=== PATIENT | female | born 1985 | race Caucasian/White ===

== ENCOUNTER 2018-03-19 03:40 | Emergency (ER) | payer BC, OTHER ==
[~2018-03-19] VITALS: Ht 160 cm; Wt 99.8 kg
--- NOTE | ~2018-03-19 | EKG ---
[place] [address] [address] [facility] [place] [address] ELECTROCARDIOGRAM REPORT Name: KIM ARGUELLO Room #: [facility]#: [id number] Admission: 03/19/18 Attend Phys: Discharge: 03/19/18 Date of : 89 Report #: [id number] THIS REPORT FOR: //name// [facility] ED Test Date: 2018-03-19 Test Time: 03:46:37 Pat Name: KIM ARGUELLO Department: Room: Gender: F Gusset Ripper: CARLA : 1985 Requested By: Randell Kincaid Order Number: [id number] MD: Clint Mujica Measurements Intervals [place] Rate: 127 P: 43 AL: 109 QRS: 57 QRSD: 87 T: -24 QT: 320 QTc: 466 Interpretive Statements Sinus tachycardia Nonspecific repol abnormality, diffuse leads No previous ECG available for comparison Electronically Signed On 03-20-2018 8:36:37 CDT by Clint Mujica [email or web address] <ELECTRONICALLY SIGNED> By: Clint Mujica MD, [facility] 03/20/18 0836 0346 0346 Clint Mujica MD, FACC /EPI
[2018-03-19] MEDS ORDERED: LOPRESSOR25 PO ×2 (04:15→05:28)
[2018-03-19] MEDS ORDERED: HYDROCHLOROTH12.5 M1 PO (04:16)
[2018-03-19] MEDS ORDERED: RECLIPSEN1 EACH PO (04:16)
[2018-03-19] MEDS ORDERED: CENTRUM SILVER1 EAC4 PO (04:17)
[2018-03-19] MEDS ORDERED: FISH OIL 1,001000 M2 PO (04:17)
[2018-03-19] MEDS ORDERED: XANAX 0.5 MG0.5 MG (04:17)
[2018-03-19] MEDS ORDERED: ASPIR 8181 MG PO (04:18)
[2018-03-19] MEDS ORDERED: BENADRYL25 MG (04:18)
[2018-03-19 04:34] LABS: ANION GAP 13 mmol/L (7-16); BUN 4 mg/dL (7-18); CALCIUM 9.6 mg/dL (8.5-10.1); CHLORIDE 99 mmol/L (98-107); CO2 23 mmol/L (21-32); CREATININE 1.2 mg/dL (0.6-1.0); GLUCOSE 124 mg/dL (74-106); POTASSIUM 3.8 mmol/L (3.5-5.1); SODIUM 135 mmol/L (136-145)
[2018-03-19 04:36] LABS: AMP/METHAMP Negative (Negative); BARBITURATES Negative (Negative); BENZODIAZEPINES Negative (Negative); COCAINE Negative (Negative); METHADONE Negative (Negative); OPIATES Negative (Negative); PCP Negative (Negative)
[2018-03-19 04:38] LABS: BASOPHILS 1.1 % (0.0-2.0); EOSINOPHILS 0.3 % (0.0-3.0); HEMATOCRIT 36.3 % (37.0-47.0); HEMOGLOBIN 12.7 gm/dL (12.0-15.0); LYMPHOCYTES 22.7 % (24.0-44.0); MCH 32.3 pg (26.0-34.0); MCHC 34.9 g/dL (28.0-37.0); MCV 92.7 fL (80.0-100.0); MONOCYTES 5.9 % (1.0-8.0); PLATELET COUNT 428 thou/uL (150-400); RBC 3.92 mil/uL (4.20-5.00); RDW 13.3 % (10.5-14.5); WBC 17.1 thou/uL (4.0-11.0)
[2018-03-19 04:43] LABS: TROPONIN-I <0.06 ng/mL (<0.06)
[2018-03-19 05:50] VITALS: BP 168/115
== END 2018-03-19 05:50 | disposition home or self-care (01) ==
LOC: ER 03:40
PROVIDERS: Emergency Medicine
DX: R00.0 Tachycardia, unspecified (principal); R42 Dizziness and giddiness; R11.2 Nausea with vomiting, unspecified

== ENCOUNTER 2018-04-28 21:52 | Emergency (ER) | payer OTHER, BC ==
[~2018-04-28] VITALS: Ht 162.6 cm; Wt 95.3 kg
[~2018-04-28 21:52] MED LIST: ASPIR 8181 MG PO; BENADRYL25 MG PO; CENTRUM SILVER1 EAC4 PO; FISH OIL 1,001000 M2 PO; HYDROCHLOROTH12.5 M1 PO; LOPRESSOR25 PO; NORCO 5-325 TA1 EACH PO; RECLIPSEN1 EACH PO; SENNA-S TABLET1 EACH PO; XANAX 0.5 MG0.5 MG PO
[2018-04-28 22:12] LABS: URINE BILIRUBIN NEGATIVE (Negative); URINE BLOOD TRACE (Negative); URINE CLARITY CLEAR; URINE COLOR YELLOW; URINE GLUCOSE-RANDOM* NEGATIVE (Negative); URINE KETONES NEGATIVE (Negative); URINE LEUKOCYTES-REFLEX NEGATIVE (Negative); URINE NITRITE-REFLEX NEGATIVE (Negative); URINE PROTEIN (DIPSTICK) NEGATIVE (Negative); URINE SPECIFIC GRAVITY <= 1.005 (1.005-1.035); URINE UROBILINOGEN 0.2 E.U./dl (0.2-1.0)
[2018-04-28 23:41] LABS: ABSOLUTE NEUTROPHILS 11.4 thou/uL (1.4-8.2); BASOPHILS 0.6 % (0.0-2.0); EOSINOPHILS 0.5 % (0.0-3.0); HEMOGLOBIN 12.1 gm/dL (12.0-15.0); LYMPHOCYTES 19.8 % (24.0-44.0); MCH 32.4 pg (26.0-34.0); MCHC 33.7 g/dL (28.0-37.0); MCV 96.1 fL (80.0-100.0); MONOCYTES 5.5 % (1.0-8.0); PLATELET COUNT 419 thou/uL (150-400); POLYS 73.6 % (36.0-66.0); RBC 3.75 mil/uL (4.20-5.00); RDW 13.1 % (10.5-14.5); WBC 15.6 thou/uL (4.0-11.0)
[2018-04-29 00:07] LABS: CALCIUM 9.3 mg/dL (8.5-10.1); CREATININE 0.9 mg/dL (0.6-1.0); POTASSIUM 3.4 mmol/L (3.5-5.1)
[2018-04-29 00:12] LABS: ALBUMIN 3.7 g/dL (3.4-5.0); TOTAL BILIRUBIN 0.5 mg/dL (<0.1-1.0); TOTAL PROTEIN 7.5 g/dL (6.4-8.2)
[2018-04-29] MEDS ORDERED: NAPROSYN500 MG PO (01:57)
[2018-04-29] MEDS ORDERED: NORCO 5-325 TA1 EACH PO (01:57)
== END 2018-04-29 02:30 | disposition home or self-care (01) ==
LOC: ER 21:52
PROVIDERS: Emergency Medicine
DX: G89.18 Other acute postprocedural pain (principal); R19.7 Diarrhea, unspecified; N83.201 Unspecified ovarian cyst, right side; R00.0 Tachycardia, unspecified; D72.829 Elevated white blood cell count, unspecified; I10 Essential (primary) hypertension; F41.9 Anxiety disorder, unspecified; Z98.890 Other specified postprocedural states; Z90.49 Acquired absence of other specified parts of digestive tract

== ENCOUNTER 2018-05-03 23:44 | Emergency (ER) | payer BC, OTHER ==
[~2018-05-03] VITALS: Ht 162.6 cm; Wt 95.3 kg
[~2018-05-03 23:44] MED LIST changes: +NAPROSYN500 MG PO
[2018-05-04 01:11] LABS: HEMATOCRIT 36.5 % (37.0-47.0); HEMOGLOBIN 12.4 gm/dL (12.0-15.0); MCH 32.6 pg (26.0-34.0); MCHC 33.9 g/dL (28.0-37.0); MCV 96.2 fL (80.0-100.0); RBC 3.79 mil/uL (4.20-5.00); WBC 14.4 thou/uL (4.0-11.0)
[2018-05-04 01:15] LABS: CALCIUM 9.3 mg/dL (8.5-10.1); CREATININE 0.8 mg/dL (0.6-1.0); POTASSIUM 3.6 mmol/L (3.5-5.1)
[2018-05-04 01:21] LABS: ALBUMIN 3.6 g/dL (3.4-5.0); TOTAL BILIRUBIN 0.4 mg/dL (<0.1-1.0); TOTAL PROTEIN 7.1 g/dL (6.4-8.2)
[2018-05-04] MEDS ORDERED: PHENERGAN 25 MG25 M1 PO (03:45)
[2018-05-04] MEDS ORDERED: ZOFRAN ODT4 MG PO (03:45)
== END 2018-05-04 04:00 | disposition home or self-care (01) ==
LOC: ER 23:44
PROVIDERS: Emergency Medicine
DX: R10.30 Lower abdominal pain, unspecified (principal); Z90.49 Acquired absence of other specified parts of digestive tract; R11.2 Nausea with vomiting, unspecified; R00.0 Tachycardia, unspecified; I10 Essential (primary) hypertension; F41.9 Anxiety disorder, unspecified; Z98.890 Other specified postprocedural states

== ENCOUNTER 2018-06-06 13:02 | Emergency (ER) | payer BC, OTHER ==
[~2018-06-06] VITALS: Ht 162.6 cm; Wt 95.3 kg
[~2018-06-06 13:02] MED LIST changes: +ANUSOL-HC25 MG RECTAL; +BENTYL 10 MG CA10 M1 PO; +METOPROLOL SUCC50 MG PO; +PHENERGAN 25 MG25 M1 PO; +PRILOSEC 20 MG20 MG PO; +PROTONIX40 M1 PO; +TRAMADOL 50 MG50 MG PO; +ZOFRAN ODT4 MG PO; +ZOFRAN ODT8 MG PO
[2018-06-06 14:08] LABS: ABSOLUTE NEUTROPHILS 8.2 thou/uL (1.4-8.2); BASOPHILS 0.5 % (0.0-2.0); EOSINOPHILS 0.3 % (0.0-3.0); HEMATOCRIT 43.1 % (37.0-47.0); HEMOGLOBIN 14.6 gm/dL (12.0-15.0); LYMPHOCYTES 23.6 % (24.0-44.0); MCH 32.5 pg (26.0-34.0); MCHC 33.9 g/dL (28.0-37.0); MCV 95.8 fL (80.0-100.0); MONOCYTES 6.4 % (1.0-8.0); PLATELET COUNT 362 thou/uL (150-400); POLYS 69.2 % (36.0-66.0); RDW 13.1 % (10.5-14.5); WBC 11.8 thou/uL (4.0-11.0)
[2018-06-06 14:25] LABS: CALCIUM 9.1 mg/dL (8.5-10.1); CREATININE 1.2 mg/dL (0.6-1.0); POTASSIUM 4.4 mmol/L (3.5-5.1)
[2018-06-06 14:30] LABS: ALBUMIN 3.9 g/dL (3.4-5.0); TOTAL BILIRUBIN 0.9 mg/dL (<0.1-1.0); TOTAL PROTEIN 8.2 g/dL (6.4-8.2)
[2018-06-06 15:04] LABS: URINE BLOOD 1+ (Negative); URINE CLARITY CLEAR; URINE COLOR YELLOW; URINE GLUCOSE-RANDOM* NEGATIVE (Negative); URINE KETONES NEGATIVE (Negative); URINE LEUKOCYTES-REFLEX NEGATIVE (Negative); URINE NITRITE-REFLEX NEGATIVE (Negative); URINE PROTEIN (DIPSTICK) 1+ (Negative); URINE SPECIFIC GRAVITY >= 1.030 (1.005-1.035); URINE UROBILINOGEN 0.2 E.U./dl (0.2-1.0)
[2018-06-06 15:07] LABS: ICTOTEST (BILI CONFIRMATORY) Negative (Negative); URINE BILIRUBIN NEGATIVE (Negative)
[2018-06-06 15:10] LABS: SQUAMOUS 4-10 Moderate /LPF (0-3); URINE RBC 3-10 Few /HPF (0-2); URINE WBC-REFLEX 0-5 Rare /HPF (0-5)
[2018-06-06 15:13] LABS: BACTERIA-REFLEX 1-9 Few /HPF (None Seen); CASTS None Seen /LPF (None Seen); CRYSTALS None Seen /LPF (None Seen); YEAST-REFLEX Present (None Seen)
== END 2018-06-06 16:45 | disposition home or self-care (01) ==
LOC: ER 13:02
PROVIDERS: Physician Assistant
DX: D72.829 Elevated white blood cell count, unspecified (principal); R94.5 Abnormal results of liver function studies; R11.2 Nausea with vomiting, unspecified; R00.0 Tachycardia, unspecified; I10 Essential (primary) hypertension; F41.9 Anxiety disorder, unspecified; Z98.890 Other specified postprocedural states

== ENCOUNTER 2018-12-03 06:51 | Emergency (ER) | payer BC, OTHER ==
[~2018-12-03] VITALS: Ht 162.6 cm; Wt 86.2 kg
[2018-12-03] MEDS ORDERED: FENOFIBRATE160 MG PO ×2 (07:09)
[2018-12-03 08:18] LABS: ABSOLUTE NEUTROPHILS 5.8 thou/uL (1.4-8.2); BASOPHILS 0.6 % (0.0-2.0); EOSINOPHILS 1.1 % (0.0-3.0); HEMATOCRIT 41.8 % (37.0-47.0); HEMOGLOBIN 14.4 gm/dL (12.0-15.0); LYMPHOCYTES 25.3 % (24.0-44.0); MCH 33.7 pg (26.0-34.0); MCHC 34.4 g/dL (28.0-37.0); MCV 97.9 fL (80.0-100.0); MONOCYTES 7.9 % (1.0-8.0); PLATELET COUNT 360 thou/uL (150-400); POLYS 65.1 % (36.0-66.0); RBC 4.27 mil/uL (4.20-5.00); RDW 13.7 % (10.5-14.5); WBC 8.9 thou/uL (4.0-11.0)
[2018-12-03 08:21] LABS: POTASSIUM 3.8 mmol/L (3.5-5.1)
[2018-12-03 08:27] LABS: ALBUMIN 3.8 g/dL (3.4-5.0); TOTAL BILIRUBIN 0.5 mg/dL (<0.1-1.0); TOTAL PROTEIN 7.6 g/dL (6.4-8.2)
[2018-12-03 09:29] LABS: URINE BILIRUBIN NEGATIVE (Negative); URINE BLOOD NEGATIVE (Negative); URINE CLARITY CLEAR; URINE COLOR YELLOW; URINE GLUCOSE-RANDOM* NEGATIVE (Negative); URINE KETONES NEGATIVE (Negative); URINE LEUKOCYTES-REFLEX NEGATIVE (Negative); URINE NITRITE-REFLEX NEGATIVE (Negative); URINE PROTEIN (DIPSTICK) NEGATIVE (Negative); URINE SPECIFIC GRAVITY <= 1.005 (1.005-1.035); URINE UROBILINOGEN 0.2 E.U./dl (0.2-1.0)
[2018-12-03 09:37] LABS: AMP/METHAMP Negative (Negative); BARBITURATES Negative (Negative); BENZODIAZEPINES POSITIVE (Negative); COCAINE Negative (Negative); METHADONE Negative (Negative); OPIATES POSITIVE (Negative); PCP Negative (Negative)
[2018-12-03] MEDS ORDERED: ZOFRAN ODT4 MG PO (11:35)
[2018-12-03] MEDS ORDERED: PHENERGAN 25 MG25 M1 PO (11:35)
[2018-12-03] MEDS ORDERED: NORCO 5-325 TA1 EACH PO (11:35)
[2018-12-03 11:52] VITALS: BP 131/84
== END 2018-12-03 11:52 | disposition home or self-care (01) ==
LOC: ER 06:51
PROVIDERS: Emergency Medicine
DX: R10.11 Right upper quadrant pain (principal); R10.13 Epigastric pain; R11.2 Nausea with vomiting, unspecified; R74.0 Nonspecific elevation of levels of transaminase and lactic acid dehydrogenase [LDH]; R19.7 Diarrhea, unspecified; I10 Essential (primary) hypertension; K21.9 Gastro-esophageal reflux disease without esophagitis; E78.1 Pure hyperglyceridemia; Z90.49 Acquired absence of other specified parts of digestive tract

== ENCOUNTER 2019-04-10 20:56 | Inpatient (IN) | payer BC, OTHER ==
[~2019-04-10] VITALS: Ht 162.6 cm; Wt 89.4 kg
[~2019-04-10 20:56] MED LIST changes: +CEFDINIR300 MG PO; +FENOFIBRATE160 MG PO; +NF; +NORCO 5-325 TA1 EAC1 PO; +PRENATAL PO; +TOPROL XL25 MG PO
[2019-04-10 21:58] VITALS: BP 167/92
[2019-04-10 22:38] LABS: URINE BILIRUBIN NEGATIVE (Negative); URINE BLOOD NEGATIVE (Negative); URINE CLARITY CLEAR; URINE COLOR YELLOW; URINE GLUCOSE-RANDOM* NEGATIVE (Negative); URINE KETONES TRACE (Negative); URINE LEUKOCYTES-REFLEX NEGATIVE (Negative); URINE NITRITE-REFLEX NEGATIVE (Negative); URINE PROTEIN (DIPSTICK) 1+ (Negative); URINE SPECIFIC GRAVITY 1.025 (1.005-1.035)
[2019-04-10 22:52] LABS: BACTERIA-REFLEX None Seen /HPF (None Seen); CASTS None Seen /LPF (None Seen); CRYSTALS None Seen /LPF (None Seen); MUCUS 4-6 Moderate strn/LPF (None Seen); SQUAMOUS 4-10 Moderate /LPF (0-3); URINE RBC None Seen /HPF (0-2); URINE WBC-REFLEX None Seen /HPF (0-5)
[2019-04-10 23:40] LABS: ABSOLUTE NEUTROPHILS 12.1 thou/uL (1.4-8.2); BASOPHILS 0.6 % (0.0-2.0); EOSINOPHILS 0.7 % (0.0-3.0); HEMOGLOBIN 12.2 gm/dL (12.0-15.0); LYMPHOCYTES 20.8 % (24.0-44.0); MCHC 33.8 g/dL (28.0-37.0); MCV 100.5 fL (80.0-100.0); MONOCYTES 6.1 % (1.0-8.0); PLATELET COUNT 490 thou/uL (150-400); POLYS 71.8 % (36.0-66.0); RBC 3.58 mil/uL (4.20-5.00); RDW 12.6 % (10.5-14.5); WBC 16.9 thou/uL (4.0-11.0)
[2019-04-10 23:53] LABS: CALCIUM 9.5 mg/dL (8.5-10.1); POTASSIUM 4.4 mmol/L (3.5-5.1)
[2019-04-11] LABS: ALBUMIN 3.5 g/dL (3.4-5.0); TOTAL PROTEIN 7.5 g/dL (6.4-8.2)
[2019-04-11 10:42] LABS: AMP/METHAMP Negative (Negative); BARBITURATES Negative (Negative); BENZODIAZEPINES POSITIVE (Negative); COCAINE Negative (Negative); METHADONE Negative (Negative); OPIATES Negative (Negative); PCP Negative (Negative)
[2019-04-11 12:42] VITALS: BP 119/78
[2019-04-11 12:49] VITALS: BP 135/89
[2019-04-11 13:16] VITALS: BP 153/104
--- NOTE | 2019-04-11 13:23 | NUR ---
ASSUMED CARE OF PT AROUND 1315, A&0X4, AMB INDEPENDENTLY, IVF RUNNING, REC REPORT AND WAS TOLD AN ETA OF PT, THEN DISCOVERED SHE WAS PRESENT IN THE ROOM. TELE PLACED AND CLEAR LIQUIDS GIVEN. WRAPPED IV SITE TO PREVENT REMOVAL D/T MOVEMENT AND TO ENSURE IVF RUNNING. C/O PAIN AT ABOUT AN 8 FRONT LEFT ABD. HAS BEEN HERE IN THE ED SINCE 2100 NIGHT PRIOR. HOPING TO D/C BY TOMORROW LATE A.M. TO SALES AND MARKETING SPECIALIST SON. ENCOURAGED HER TO USE CALL LIGHT FOR ANY NEEDS
[2019-04-11 15:26] VITALS: BP 142/92
[2019-04-11 20:02] VITALS: BP 144/97
[2019-04-12 00:24] VITALS: BP 135/96
[2019-04-12 05:06] VITALS: BP 131/86
--- NOTE | 2019-04-12 08:33 | NUR ---
ASSUME CARE 1900. PT/VITALS STABLE. INTERMITTENT ABDO PAIN. NO N/V INDICATED. ASSESSMETN CHARTED. PROGRESSING WITH POC. PLAN IS FOR GI TO CONTINUE TO SEE PT. POSSIBLE DISCHARGE WITHIN A FEW DAYS. WILL CONTINUE TO MONITOR AND FOLLOW WITH POC
[2019-04-12 08:37] VITALS: BP 126/84
--- NOTE | 2019-04-12 11:52 | NUR ---
PT WAS TOLD D/C WAS IMMINENT BY GI SO SHE'S DRESSED. NO ORDERS. SENT COMM TO PHYSICIAN TO ASK IF D/C IS IMMINENT AND IF ANY RX WERE TO BE SENT SHE'S ASKING FOR HYDROCODONE AND ZOFRAN; AWAITING ORDERS
[2019-04-12 12:52] LABS: HEMATOCRIT 33.2 % (37.0-47.0); HEMOGLOBIN 11.2 gm/dL (12.0-15.0); MCH 34.7 pg (26.0-34.0); MCHC 33.8 g/dL (28.0-37.0); MCV 102.6 fL (80.0-100.0); RBC 3.24 mil/uL (4.20-5.00); RDW 12.6 % (10.5-14.5); WBC 9.8 thou/uL (4.0-11.0)
[2019-04-12 13:07] LABS: CALCIUM 9.4 mg/dL (8.5-10.1); CREATININE 1.1 mg/dL (0.6-1.0); POTASSIUM 4.2 mmol/L (3.5-5.1)
[2019-04-12 13:13] LABS: ALBUMIN 3.2 g/dL (3.4-5.0); MAGNESIUM 1.9 mg/dL (1.8-2.4); TOTAL BILIRUBIN 0.5 mg/dL (<0.1-1.0); TOTAL PROTEIN 6.9 g/dL (6.4-8.2)
[2019-04-12] MEDS ORDERED: HYDROCODON-ACE1 EAC7 PO (13:27)
[2019-04-12] MEDS ORDERED: ZOFRAN ODT4 MG DISSOLVE (13:28)
[2019-04-12 13:47] VITALS: BP 126/84
== END 2019-04-12 14:09 | disposition home or self-care (01) | DRG 392 ==
LOC: ER 20:56 → EROBS 04-11 02:23 → 2N 04-11 02:23
PROVIDERS: Emergency Medicine; Internal Medicine; Nurse Practitioner Acute Care; Physician Assistant; ADMIT Internal Medicine
DX: A08.4 Viral intestinal infection, unspecified (principal); I10 Essential (primary) hypertension; K21.9 Gastro-esophageal reflux disease without esophagitis; D72.829 Elevated white blood cell count, unspecified; F41.9 Anxiety disorder, unspecified; R74.0 Nonspecific elevation of levels of transaminase and lactic acid dehydrogenase [LDH]; F80.82 Social pragmatic communication disorder; E78.1 Pure hyperglyceridemia; K76.0 Fatty (change of) liver, not elsewhere classified; F12.90 Cannabis use, unspecified, uncomplicated; Z90.49 Acquired absence of other specified parts of digestive tract; Z79.899 Other long term (current) drug therapy; Z98.891 History of uterine scar from previous surgery; Z83.3 Family history of diabetes mellitus; Z80.8 Family history of malignant neoplasm of other organs or systems; Z84.1 Family history of disorders of kidney and ureter; Z71.89 Other specified counseling
CPT/HCPCS: 10081

== ENCOUNTER 2019-05-21 14:35 | Inpatient (IN) | payer BC, OTHER ==
[~2019-05-21] VITALS: Ht 162.6 cm; Wt 86.6 kg
--- NOTE | ~2019-05-21 | H ---
[facility] [place] [address] HISTORY AND PHYSICAL Name: KIM ARGUELLO Room #: 351-P ADM IN M.R.#: [id number] Admission: 05/21/19 Attend Phys: Magnolia Doan MD Discharge: Date of : 89 Report #: [id number] THIS REPORT FOR: //name// CC: Cristian Doan DATE OF SERVICE: 05/21/2019 PRIMARY CARE PHYSICIAN: Dr. Cristian Snow. CHIEF COMPLAINT: Abdominal pain, progressively worsening for the past 2 days. HISTORY OF PRESENT ILLNESS: The patient is a very pleasant 34-year-old female with a known history of abdominal pain with pancreatic and biliary ductal issues after cholecystectomy and had a stent placed approximately 14 months ago. The patient informs me that she was supposed to have a followup for her stent; however, because of change in insurance, she could not see her GI team and she has not had any problems, so she did not think much of it to make an appointment with the GI, but 2 days ago, she started having abdominal pain. She points to the epigastric area and the pain radiates to the left upper quadrant interestingly and the patient denies any radiation to the back or to the jaw or shoulder. The patient denies any associated nausea or vomiting; however, she has had some diarrhea for the last 2 days, which she describes more like a soft stool rather than actual diarrhea. The patient informs me that recently she has been treated for UTI with cephalexin; however, she did not complete the course as she was symptomatically much better and then she started having problems with the frequency and urgency of urination. She denies dysuria; however, the patient informs me that she has had some fever as well as chills and night sweats and flushing of the face noted by her family member. 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 The patient denies any hematochezia or melena and with this soft stool. Denies any hematochezia, melena and denies dysuria, hematuria as well. The patient has not had any dizziness, lightheadedness or any focal neurologic weakness and approximately 3 years ago, she had an episode of UTI and after that she was treated for UTI sometimes at the end of February this year. Other than that, she has not had any problems with urinary tract infection. PAST MEDICAL HISTORY: Significant for: 1. Abdominal pain with issues with gallbladder and ended up having cholecystectomy on 04/13/2018 and subsequently she was seen by GI and had a stent placed in the pancreatic duct by [facility]'s GI team. The patient also has had a history of chronic abdominal pain, elevated liver function test and biliary stent insertion, postoperative abdominal pain, pyelonephritis, history of rectal bleeding, history of right ovarian cyst. Also, has had history of transaminitis and a recurrent UTI and chronic recurrent diarrhea. [address] [address] HISTORY AND PHYSICAL Name: KIM ARGUELLO BRICE Room #: 351-P [facility] IN M.R.#: [id number] Admission: 05/21/19 Attend Phys: Magnolia Doan MD Discharge: Date of : 89 Report #: [id number] ALLERGIES: The patient has no known drug allergies. CURRENT MEDICATIONS: She was taking fenofibrate; however, in end of February, she was told to stop it. Fenofibrate did help her with the symptoms of diarrhea. Interestingly, she does not take any other medications. PERSONAL AND SOCIAL HISTORY: She smoked when she was in college, maybe for a year less than 4 cigarettes a day and she denies any alcohol or tobacco use on a regular basis. She has not had any tobacco since she got out of college. She does drink 4-6 drinks on the long weekend and regularly she drinks 4 drinks on the weekend and has not had any withdrawal symptoms and does not take alcohol on a daily basis. FAMILY HISTORY: Significant for mother dealing with lot of GI issues as well as some issues with the uterus and she is going to have a hysterectomy pretty soon and she also has had cholecystectomy at a much younger age, just like the patient and father has a history of leukemia; however, with stem cell lung transplant, he has been doing fine. Family history significant for paternal uncles with all different kinds of cancers. PAST SURGICAL HISTORY: The patient has had cholecystectomy 14 months ago and then biliary stent placement after that and she is supposed to get the stent removed sometime soon as per the instruction from the GI team at [facility]. REVIEW OF SYSTEMS: A 10-point review of systems was done and was negative. Please see HPI above. PHYSICAL EXAMINATION: VITAL SIGNS: Temperature 37, heart rate 129, respirations 16, blood pressure 155/104, pulse oximetry 96% on room air. GENERAL: Alert and oriented to time, place and person, very pleasant 34-year-old a young woman who appears her stated age and is in no acute distress, however, does have diaphoresis and sweats right now as I am examining her. HEENT: Normocephalic, atraumatic. Pupils are equally round and reactive to light. Extraocular muscle movements are intact. Conjunctivae are clear. Sclerae are nonicteric. Both TMs are clear. No sinus tenderness noted. NECK: Supple, no JVD, no lymphadenopathy. HEART: S1, S2 regular. Tachycardia noted. LUNGS: Clear to auscultation bilaterally. ABDOMEN: The patient has significant tenderness in the epigastric area. No rebound, rigidity or masses palpable. The patient had left-sided CVA tenderness noted and no suprapubic tenderness noted. Both lower extremities are without any edema. NEUROLOGIC: Completely nonfocal. [facility] [address] [place] [address] HISTORY AND PHYSICAL Name: KIM ARGUELLO Room #: 351-[facility] IN [facility]#: [id number] Admission: 05/21/19 Attend Phys: Magnolia Doan MD Discharge: Date of : 89 Report #: [id number] LABORATORY DATA AND X-RAYS: Lactic acid 2.7, elevated; WBC 13.2, elevated; hemoglobin 13.6; hematocrit ____; platelet count 389 with a differential, elevated; segmented neutrophil of 66.7. Chemistries indicate sodium 135, low sodium, potassium 3.5, chloride 99, bicarbonate 19, anion gap 17, BUN 7, creatinine 1.0, estimated GFR 64, glucose 221, calcium 9.5, total bilirubin 1.1, AST 174, ALT 130, alkaline phosphatase 110, total protein 7.5, albumin 3.6. Lipase is elevated at 517. Urinalysis with a specific gravity of 1.030, pH 6 and protein 2+, ketones trace, 2+ blood, positive nitrites and negative leukocyte esterase, however, 0-3 squamous epithelial cells and 1-9 bacteria seen, but no wbc's seen and there is random glucose. ____ test is negative. CT scan of the abdomen and pelvis was done and it indicated hepatomegaly as well as common bile duct metallic stent seen. Next, a diffusely thickened urinary bladder noted and a urine culture and blood culture has been sent. ASSESSMENT AND PLAN: 1. Sepsis. 2. Urinary tract infection. 3. Abdominal pain with a biliary stent in place. 4. With a left-sided CVA tenderness likely pyelonephritis. 5. Hyperglycemia with a serum glucose of 221 consistent with diabetes. PLAN: 1. The patient has received normal saline bolus in the Emergency Room and ceftriaxone and metronidazole have been started for sepsis as well as further GI source as well as UTI. Urine culture and blood cultures have been sent and will follow up on that and then we will go ahead and give normal saline fluid bolus. The patient has already received a one-time 1000 mL bolus already and we will go ahead and give another one and repeat lactic acid in 3 hours. 2. GI has been consulted for abdominal pain and will give IV Pepcid b.i.d. We will hold off on the Lovenox at this time and will give pneumatic compression devices for DVT prophylaxis. 3. The complete abdominal ultrasound has been ordered because of the left CVA tenderness and a recent untreated urinary tract infections. We will look at the renal shadow as well as evaluate liver and gallbladder, liver and common bile duct and plan of care was discussed with the patient in detail and will check out patient to Ms. ____ night nurse practitioner emergency vehicle operations instructor. By: 14 51 Magnolia Doan MD /nt
[~2019-05-21 14:35] MED LIST changes: +HYDROCODON-ACE1 EAC7 PO; +ZOFRAN ODT4 MG DISSOLVE
[2019-05-21 14:36] VITALS: BP 155/104
[2019-05-21 14:58] LABS: URINE BILIRUBIN 1+ (Negative); URINE BLOOD 2+ (Negative); URINE CLARITY CLEAR; URINE COLOR ORANGE; URINE GLUCOSE-RANDOM* TRACE (Negative); URINE KETONES TRACE (Negative); URINE LEUKOCYTES-REFLEX NEGATIVE (Negative); URINE PROTEIN (DIPSTICK) 2+ (Negative); URINE SPECIFIC GRAVITY >= 1.030 (1.005-1.035)
[2019-05-21 15:00] LABS: ABSOLUTE NEUTROPHILS 8.8 thou/uL (1.4-8.2); BASOPHILS 0.6 % (0.0-2.0); EOSINOPHILS 0.5 % (0.0-3.0); HEMATOCRIT 40.3 % (37.0-47.0); HEMOGLOBIN 13.6 gm/dL (12.0-15.0); LYMPHOCYTES 24.9 % (24.0-44.0); MCH 33.4 pg (26.0-34.0); MCHC 33.6 g/dL (28.0-37.0); MCV 99.4 fL (80.0-100.0); MONOCYTES 7.3 % (1.0-8.0); PLATELET COUNT 389 thou/uL (150-400); POLYS 66.7 % (36.0-66.0); RBC 4.06 mil/uL (4.20-5.00); WBC 13.2 thou/uL (4.0-11.0)
[2019-05-21 15:01] LABS: ICTOTEST (BILI CONFIRMATORY) Positive (Negative); URINE NITRITE-REFLEX POSITIVE (Negative)
[2019-05-21 15:08] LABS: CALCIUM 9.5 mg/dL (8.5-10.1); POTASSIUM 3.5 mmol/L (3.5-5.1)
[2019-05-21 15:08] LABS: CALCIUM OXALATE 4-10 Moderate /LPF (None Seen); SQUAMOUS 0-3 Few /LPF (0-3)
[2019-05-21 15:09] LABS: CASTS None Seen /LPF (None Seen); MUCUS 4-6 Moderate strn/LPF (None Seen)
[2019-05-21 15:10] LABS: BACTERIA-REFLEX 1-9 Few /HPF (None Seen); URINE RBC 0-2 Rare /HPF (0-2); URINE WBC-REFLEX None Seen /HPF (0-5)
[2019-05-21 15:14] LABS: ALBUMIN 3.6 g/dL (3.4-5.0); TOTAL BILIRUBIN 1.1 mg/dL (<0.1-1.0); TOTAL PROTEIN 7.5 g/dL (6.4-8.2)
[2019-05-21 18:39] VITALS: BP 151/95
[2019-05-21 19:44] VITALS: BP 138/85
[2019-05-21 23:54] VITALS: BP 174/112
--- NOTE | 2019-05-22 03:20 | NUR ---
Admission history and assessments completed. Education about special contact isolation until Cdiff is ruled out. Better pain control with Hydromorphone, nausea controlled with zofran. Ice chips ok per Jaye Ricks WIRE DROPPER. IVfluids infusing. Up independently without difficulty. BP stable , Sinus rhtym rate 80-90 but can be up to 140's when in pin or up ambulating. For GI consult.
[2019-05-22 03:50] VITALS: BP 138/85
[2019-05-22 05:08] LABS: GLYCOHEMOGLOBIN (HGB A1C) 5.6 % (4.8-5.6)
[2019-05-22 05:41] LABS: CALCIUM 7.8 mg/dL (8.5-10.1); CREATININE 0.9 mg/dL (0.6-1.0); MAGNESIUM 1.3 mg/dL (1.8-2.4); PHOSPHORUS 2.9 mg/dL (2.5-4.9); POTASSIUM 3.6 mmol/L (3.5-5.1)
[2019-05-22 05:50] LABS: MCH 34.1 pg (26.0-34.0); MCV 100.4 fL (80.0-100.0); RBC 3.29 mil/uL (4.20-5.00); RDW 12.5 % (10.5-14.5); WBC 11.4 thou/uL (4.0-11.0)
[2019-05-22 06:17] LABS: HEMOGLOBIN 11.2 gm/dL (12.0-15.0)
[2019-05-22 07:57] VITALS: BP 149/104
--- NOTE | 2019-05-22 10:26 | NUR ---
ASSESSMENT: CM REVIEWED CHART AND MET WITH PATIENT AT THE BEDSIDE. PT IS ALERT AND ORIENTED X4. PT WAS ADMITTED WITH ABDOMINAL PAIN/UTI. PT REPORTS THAT SHE LIVES IN AN APT WITH HER SON. PT STATES HER SONS FATHER IS TAKING CARE OF HIM. PT REPORTS SHE HAS NO STEPS TO ENTER OR ONCE INSIDE. PT STATES SHE IS FULLY INDEPENDENT WITH ADLS AND AMBULATION. 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 PT REPORTS SHE HAS NOT HAD HH IN THE PAST. PT REPORTS SHE ANTICIPATES DISCHARGING BACK HOME AT DISCHARGE WITH NO NEEDS.
[2019-05-22 10:40] VITALS: BP 156/104
--- NOTE | 2019-05-22 12:22 | NUR ---
WHILE GIVING FENTANYL AND ZOFRAN CLAYTONET C/O OF A STINGING SENSATION IN HER LEFT CHEST AND MIDDLE UPPER ABDOMEN. REASSESSED PATIENT AFTER 5 MINS AND SHE STATED THE SINGING SENSATION WENT AWAY.
--- NOTE | 2019-05-22 13:10 | NUR ---
PT A&OX4, VSS, PAIN IN ABD. PAIN MEDICATION, RELAXATION, ICE PACKS TO BACK AND ABD GIVEN TO MANAGE PAIN. PT VOMITED AT APPROX 0930, 150ML OF TRANSPARENT GREEN FLUID. ZOFRAN GIVEN, PT CHECKED AT 1030 AND DENIES N/V. MEDICATION AND FLUIDS GIVEN ORDERED. PATIENT STATES HER PAIN DOES NOT DECREASE TO A COMFORTABLE LEVEL, DOCTOR IN TO VISIT PATIENT. PATIENT EXPERIENCING HIGH DIASTOLIC BP, DOCTOR AWARE, ORDERS PLACED.
[2019-05-22 16:06] VITALS: BP 171/117
[2019-05-22 20:02] LABS: AMP/METHAMP Negative (Negative); BARBITURATES Negative (Negative); BENZODIAZEPINES Negative (Negative); COCAINE Negative (Negative); METHADONE Negative (Negative); OPIATES POSITIVE (Negative); PCP Negative (Negative)
[2019-05-22 20:47] VITALS: BP 177/117
--- NOTE | 2019-05-23 03:14 | NUR ---
PATIENT IS ALERT AND ORIENTED. PATIENT IS SBA. PATIENTS LBM WAS THE 4TH. PATIENTS PAIN IS CONTROLLED WITH PAIN MEDICATION. PATIENT HAS HAD ONLY ICECHIPS THIS SHIFT AND IT HAS HELPED WITH NAUSEA. PATIENT IS ROOM AIR. WCM. PATIENT IS RESTING COMFORTABLY IN BED
[2019-05-23 03:30] VITALS: BP 130/86
[2019-05-23 05:27] LABS: HEMATOCRIT 34.3 % (37.0-47.0); HEMOGLOBIN 11.5 gm/dL (12.0-15.0); MCH 33.7 pg (26.0-34.0); MCHC 33.5 g/dL (28.0-37.0); MCV 100.6 fL (80.0-100.0); RBC 3.41 mil/uL (4.20-5.00); RDW 12.7 % (10.5-14.5); WBC 10.9 thou/uL (4.0-11.0)
[2019-05-23 05:31] LABS: ALBUMIN 2.9 g/dL (3.4-5.0); CALCIUM 7.4 mg/dL (8.5-10.1); CREATININE 0.7 mg/dL (0.6-1.0); MAGNESIUM 2.1 mg/dL (1.8-2.4); PHOSPHORUS 1.8 mg/dL (2.5-4.9); POTASSIUM 3.3 mmol/L (3.5-5.1); TOTAL BILIRUBIN 0.7 mg/dL (<0.1-1.0); TOTAL PROTEIN 6.2 g/dL (6.4-8.2)
[2019-05-23 07:01] VITALS: BP 132/89
[2019-05-23 13:44] VITALS: BP 127/88
[2019-05-23 19:09] VITALS: BP 124/78
--- NOTE | 2019-05-23 20:09 | NUR ---
PT PAIN HAS BEEN FARLY WELL CONTROLLED UNTIL THIS BALWINDER...ALTERNATING FENTANTL AND DILAUDID FOR PAIN...REPORTS LUQ PAIN THAT READIATES TO BACK AND SOME RLQ PAIN NOTED...DENIES EMESIS TODAY...ABLE TO TOLERATE FULL LIQ FOR DINNER..
[2019-05-24 03:45] VITALS: BP 140/82
--- NOTE | 2019-05-24 04:08 | NUR ---
PATIENT IS PROGRESSING SLOWLY IN HER CARE PLAN. VITAL SIGNS STABLE THROUGHOUT SHIFT. PATIENT COMPLAINED OF ABDOMINAL PAIN AND NAUSEA FREQUENTLY IN PAIN WHICH WAS TREATED APPROPRIATELY THROUGH MEDICATIONS AND NON PHARMACOLOGICAL INTERVENTIONS. FULLY ORIENTED, PATIENT IS ABLE TO CALL APPROPRIATELY FOR NEEDS AND PARTICIPATE IN CARE. UP AD ANSHUL THROUGHOUT SHIFT, PATIENT APPEARS STRONG AND BALANCED WHEN AMBULATING. DIET TO BE ADVANCED WITH BREAKFAST THIS MORNING. CONTINUE PLAN OF CARE.
[2019-05-24 05:46] LABS: HEMATOCRIT 33.2 % (37.0-47.0); MCH 33.3 pg (26.0-34.0); RBC 3.29 mil/uL (4.20-5.00); RDW 12.9 % (10.5-14.5); WBC 7.3 thou/uL (4.0-11.0)
[2019-05-24 06:06] LABS: MAGNESIUM 1.9 mg/dL (1.8-2.4); PHOSPHORUS 1.3 mg/dL (2.5-4.9)
[2019-05-24 06:08] LABS: CALCIUM 7.9 mg/dL (8.5-10.1); CREATININE 0.7 mg/dL (0.6-1.0); POTASSIUM 4.3 mmol/L (3.5-5.1)
[2019-05-24 07:24] VITALS: BP 138/96
--- NOTE | 2019-05-24 09:56 | NUR ---
care of pt assumed this am @ ~0700. pt noted to be resting quietly and comfortably in bed but co pain to luq at 7/10 this am w/ assessment. pt co nausea w/o emesis this am. pt had her first soft fiber meal/breakfast this am wo compliants. ivf's infusing wo issue or concern at this time. dr. alvarez and dr. franco at this am. pain meds changed per dr. franco. dc possible saturday or saturday. pt up ad chpain w/ a steady, balanced and coordinated gait.
[2019-05-24] MEDS ORDERED: MIRALAX17 GM PO (14:23)
[2019-05-24] MEDS ORDERED: NORCO 5-325 TA1 EAC1 PO (14:23)
[2019-05-24] MEDS ORDERED: FLAGYL375 MG PO (14:25)
[2019-05-24] MEDS ORDERED: KEFLEX250 MG PO (14:26)
[2019-05-24 15:07] VITALS: BP 138/96
== END 2019-05-24 16:27 | disposition home or self-care (01) | DRG 872 ==
LOC: ER 14:35 → EROBS 16:55 → 3W 19:54
PROVIDERS: Nurse Practitioner; Nurse Practitioner Acute Care; Physician Assistant; ADMIT Internal Medicine
DX: A41.9 Sepsis, unspecified organism (principal); N39.0 Urinary tract infection, site not specified; I10 Essential (primary) hypertension; R65.20 Severe sepsis without septic shock; K21.9 Gastro-esophageal reflux disease without esophagitis; F41.9 Anxiety disorder, unspecified; E11.65 Type 2 diabetes mellitus with hyperglycemia; E78.1 Pure hyperglyceridemia; K76.0 Fatty (change of) liver, not elsewhere classified; E66.9 Obesity, unspecified; Z68.32 Body mass index [BMI] 32.0-32.9, adult; Z98.891 History of uterine scar from previous surgery; Z87.891 Personal history of nicotine dependence; Z90.49 Acquired absence of other specified parts of digestive tract; Z79.899 Other long term (current) drug therapy; Z83.3 Family history of diabetes mellitus; Z80.8 Family history of malignant neoplasm of other organs or systems
CPT/HCPCS: 10779

== ENCOUNTER 2019-06-05 05:00 | Emergency (ER) | payer BC, OTHER ==
[~2019-06-05] VITALS: Ht 162.6 cm; Wt 83.9 kg
[~2019-06-05 05:00] MED LIST changes: +FLAGYL375 MG PO; +KEFLEX250 MG PO; +MIRALAX17 GM PO
[2019-06-05 06:04] LABS: ABSOLUTE NEUTROPHILS 8.3 thou/uL (1.4-8.2); BASOPHILS 0.7 % (0.0-2.0); HEMATOCRIT 42.2 % (37.0-47.0); HEMOGLOBIN 13.9 gm/dL (12.0-15.0); LYMPHOCYTES 21.1 % (24.0-44.0); MCH 32.6 pg (26.0-34.0); MCHC 32.9 g/dL (28.0-37.0); MCV 99.1 fL (80.0-100.0); MONOCYTES 5.8 % (1.0-8.0); PLATELET COUNT 323 thou/uL (150-400); POLYS 71.4 % (36.0-66.0); RBC 4.26 mil/uL (4.20-5.00); RDW 12.7 % (10.5-14.5); WBC 11.6 thou/uL (4.0-11.0)
[2019-06-05 06:47] LABS: ANION GAP 17 mmol/L (7-16); BUN 5 mg/dL (7-18); CALCIUM 9.6 mg/dL (8.5-10.1); CHLORIDE 99 mmol/L (98-107); CO2 22 mmol/L (21-32); GLUCOSE 145 mg/dL (74-106); POTASSIUM 4.6 mmol/L (3.5-5.1); SODIUM 138 mmol/L (136-145)
[2019-06-05 06:54] LABS: TROPONIN-I <0.06 ng/mL (<0.06)
[2019-06-05] MEDS ORDERED: ZOFRAN ODT4 MG PO (07:25)
[2019-06-05] MEDS ORDERED: ALPRAZOLAM XR0.5 MG PO (07:56)
[2019-06-05 07:58] VITALS: BP 128/92
--- NOTE | 2019-06-05 17:26 | EKG ---
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: kaylan : 1985 Requested By: Randell iKncaid Order Number: [id number] MD: Clint Mujica Measurements Intervals [place] Rate: 115 P: 60 PA: 105 QRS: 65 QRSD: 93 T: -13 QT: 340 QTc: 471 Interpretive Statements Sinus tachycardia Nonspecific ST segment abnormality Borderline prolonged QT interval Compared to ECG 04/13/2018 19:07:03 No significant change was found Electronically Signed On 06-05-2019 17:26:06 CDT by Clint Mujica [email or web address] ��������������������������������������������� <ELECTRONICALLY SIGNED> ���������������������������������������� By: Clint Mujica MD, [facility] ��������������������������������������������� 06/05/19 1726 6 6 Clint Mujica MD, FAC /EPI
== END 2019-06-05 08:02 | disposition home or self-care (01) ==
LOC: ER 05:00
PROVIDERS: Emergency Medicine
DX: F41.9 Anxiety disorder, unspecified (principal); T50.6X5A Adverse effect of antidotes and chelating agents, initial encounter; I10 Essential (primary) hypertension; K21.9 Gastro-esophageal reflux disease without esophagitis; Z98.890 Other specified postprocedural states; Z90.49 Acquired absence of other specified parts of digestive tract; Y92.89 Other specified places as the place of occurrence of the external cause

== ENCOUNTER 2019-08-03 06:20 | Inpatient (IN) | payer BC, OTHER ==
[~2019-08-03] VITALS: Ht 162.6 cm; Wt 77.1 kg
[~2019-08-03 06:20] MED LIST changes: +ALPRAZOLAM XR0.5 MG PO
[2019-08-03 06:21] VITALS: BP 146/106
--- NOTE | 2019-08-03 07:41 | EKG ---
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: GEOVANNA : 1985 Requested By: Jarrod Red Order Number: [id number] MD: Clint Mujica Measurements Intervals [place] Rate: 104 P: 18 [place]: 112 QRS: 54 QRSD: 89 T: -12 QT: 348 QTc: 458 Interpretive Statements Sinus tachycardia Nonspecific ST segment abnormality Compared to ECG 06/05/2019 05:17:22 No significant change was found Electronically Signed On 08-03-2019 7:41:46 BULLARD MACHINE OPERATOR by Clint Mujica [email or web address] <ELECTRONICALLY SIGNED> By: Clint Mujica MD, [facility] 08/03/19 0741 07 Clint Mujica MD, FACC /EPI
[2019-08-03 07:52] LABS: HEMATOCRIT 35.3 % (37.0-47.0); HEMOGLOBIN 11.6 gm/dL (12.0-15.0); MCH 35.6 pg (26.0-34.0); MCHC 32.9 g/dL (28.0-37.0); MCV 108.1 fL (80.0-100.0); PLATELET COUNT 524 thou/uL (150-400); RBC 3.27 mil/uL (4.20-5.00); RDW 15.6 % (10.5-14.5); WBC 16.1 thou/uL (4.0-11.0)
[2019-08-03 08:04] LABS: LIPASE 34 U/L (73-393)
[2019-08-03 08:10] LABS: ANION GAP 12 mmol/L (7-16); BUN 6 mg/dL (7-18); CHLORIDE 102 mmol/L (98-107); CO2 24 mmol/L (21-32); GLUCOSE 129 mg/dL (74-106); POTASSIUM 3.3 mmol/L (3.5-5.1); SODIUM 138 mmol/L (136-145)
[2019-08-03 08:17] LABS: ALBUMIN 3.2 g/dL (3.4-5.0); APTT 24.8 Seconds (24.5-32.8); D-DIMER 0.55 ug/mLFEU (0.19-0.50); INR 1.1; MAGNESIUM 1.5 mg/dL (1.8-2.4); PROTIME 11.5 Seconds (9.3-11.4); SGOT 270 U/L (15-37); SGPT 190 U/L (30-65); TOTAL BILIRUBIN 1.2 mg/dL (<0.1-1.0); TOTAL PROTEIN 6.7 g/dL (6.4-8.2); TROPONIN-I <0.06 ng/mL (<0.06)
[2019-08-03 08:31] LABS: ABSOLUTE NEUTROPHILS 11.3 thou/uL (1.4-8.2); LARGE PLATELETS OCCASIONAL; METAMYELOCYTES 1 %; PLATELET ESTIMATE INCREASED
[2019-08-03 08:32] LABS: ANISOCYTOSIS 1+; MACROCYTES 2+; POLYCHROMASIA SLIGHT
[2019-08-03 09:35] VITALS: BP 151/116
[2019-08-03 09:40] LABS: URINE BILIRUBIN NEGATIVE (Negative); URINE BLOOD NEGATIVE (Negative); URINE CLARITY CLEAR; URINE COLOR YELLOW; URINE GLUCOSE-RANDOM* NEGATIVE (Negative); URINE KETONES NEGATIVE (Negative); URINE LEUKOCYTES-REFLEX NEGATIVE (Negative); URINE NITRITE-REFLEX NEGATIVE (Negative); URINE PROTEIN (DIPSTICK) NEGATIVE (Negative); URINE SPECIFIC GRAVITY 1.025 (1.005-1.035); URINE UROBILINOGEN 0.2 E.U./dl (0.2-1.0)
[2019-08-03 09:48] LABS: AMP/METHAMP Negative (Negative); BARBITURATES Negative (Negative); BENZODIAZEPINES Negative (Negative); COCAINE Negative (Negative); METHADONE Negative (Negative); OPIATES Negative (Negative); PCP Negative (Negative)
[2019-08-03 10:44] VITALS: BP 152/116
[2019-08-03 10:54] VITALS: BP 140/102
--- NOTE | 2019-08-03 12:58 | NUR ---
PATIENT ADMITTED TO 364 FROM E.D. ALERT AND ORIENTED. VITALS STABLE, MEDICATED FOR PAIN WITH PRN MEDS. ADMISSION ASSESSMENT AND EDUCATION DOCUMENTED. INSTRUCTED TO CALL FOR ASSISTANCE TO THE BATHROOM. ORDERS ACKNOWLEDGED AND IMPLEMENTED.
[2019-08-03 15:59] VITALS: BP 153/105
[2019-08-03 19:20] VITALS: BP 136/98
[2019-08-04] VITALS (7 sets, daily range): BP systolic 132–159; BP diastolic 84–113
[2019-08-04] MEDS ORDERED: NEURONTIN 300M300 M2 PO (01:32)
--- NOTE | 2019-08-04 02:51 | NUR ---
Patient requested to use the BR; she was determined to be unsteady on her feet and she was also having pain. Nursing assisted patient to the BSC, using a walker + gait belt, to reduce fall risk.
[2019-08-04 05:55] LABS: ABSOLUTE NEUTROPHILS 6.8 thou/uL (1.4-8.2); BASOPHILS 1.1 % (0.0-2.0); EOSINOPHILS 5.3 % (0.0-3.0); HEMATOCRIT 30.3 % (37.0-47.0); HEMOGLOBIN 10.2 gm/dL (12.0-15.0); LYMPHOCYTES 31.3 % (24.0-44.0); MCH 36.6 pg (26.0-34.0); MCHC 33.7 g/dL (28.0-37.0); MCV 108.5 fL (80.0-100.0); MONOCYTES 4.8 % (1.0-8.0); POLYS 57.5 % (36.0-66.0); RBC 2.79 mil/uL (4.20-5.00); RDW 15.7 % (10.5-14.5); WBC 11.8 thou/uL (4.0-11.0)
[2019-08-04 06:09] LABS: ALBUMIN 2.7 g/dL (3.4-5.0); CALCIUM 8.5 mg/dL (8.5-10.1); CREATININE 0.9 mg/dL (0.6-1.0); MAGNESIUM 1.6 mg/dL (1.8-2.4); TOTAL PROTEIN 5.9 g/dL (6.4-8.2)
[2019-08-04 06:15] LABS: PLATELET COUNT 441 thou/uL (150-400)
[2019-08-04 06:16] LABS: POTASSIUM 4.3 mmol/L (3.5-5.1)
--- NOTE | 2019-08-04 15:59 | NUR ---
Tiffanie Dyer is a 34 year old female who was admitted for sepsis and back pain. Hx of chronic UTIs, cholecystectomy, HTN, anxiety and pancreatitis, as welll as chronic UTIs. Alert and orientated x4. Pt was in a hopeful mood today, calm, pleasent. Asked for pain medication and was aware of when pain medication was due. Complained of lower back, and leg pain. rated pain at a 9. Pain medication reassessement was at a 4. Lungs are clear, no edema, good beer runner strength. WBC decreased after antiobiotic treatment, vancomycin given today in afternoon. pt had a goal to get up and walk tp bathroom, patient acheived goal x2. after pt visited with hospitalist who spoke with her about the importance of diet and excersice pt expressed motivation to imrpove this part of her life and verbalized she would seek PCP out after discharge to acheive goal
[2019-08-04 17:13] LABS: % SATURATION 22 % (20-39); IRON 53 ug/dL (50-170); TIBC 244 ug/dL (250-450)
[2019-08-04 17:34] LABS: FOLIC ACID 6.9 ng/mL (8.6-58.9)
--- NOTE | 2019-08-04 18:34 | NUR ---
ASSUMED PATIENT CARE AT 0700. A/O X4. C/O RIGHT LEG AND BACK PAIN. AMBULATED IN ROOM WITH STANDBY. VSS, AFEBRILE. PROGRESSING TOWARDS POC GOALS.
[2019-08-05 04:28] VITALS: BP 139/98
[2019-08-05 07:13] VITALS: BP 146/112
--- NOTE | 2019-08-05 07:44 | NUR ---
patient is alert and oriented. patient is sba with walker due to weakness. patient is on room air. patients pain is treated with medication. patient is resting comfortably in bed. wcm. patient is progressing to goals.
[2019-08-05 09:25] LABS: ALBUMIN 3.1 g/dL (3.4-5.0); DIRECT BILIRUBIN 0.7 mg/dL (<0.1-0.3); TOTAL BILIRUBIN 0.9 mg/dL (<0.1-1.0); TOTAL PROTEIN 6.1 g/dL (6.4-8.2)
[2019-08-05 11:10] VITALS: BP 154/111
[2019-08-05] MEDS ORDERED: CEFDINIR300 MG PO ×2 (13:16→14:59)
[2019-08-05] MEDS ORDERED: GABAPENTIN 100100 MG PO ×2 (13:16→14:59)
[2019-08-05] MEDS ORDERED: CYCLOBENZAPRINE5 MG PO ×2 (13:16→14:59)
[2019-08-05] MEDS ORDERED: NIACIN SR 250250 MG PO ×2 (13:16→14:59)
[2019-08-05] MEDS ORDERED: MOBIC7.5 MG PO ×2 (13:16→14:59)
[2019-08-05] MEDS ORDERED: TRAMADOL 50 MG50 MG PO (13:16)
[2019-08-05] MEDS ORDERED: METOPROLOL SUCC50 MG PO ×2 (13:16→14:59)
[2019-08-05] MEDS ORDERED: [UNRECOGNIZED DRUG - REMARK] (14:40)
[2019-08-05] MEDS ORDERED: PROTONIX40 M1 PO (14:59)
[2019-08-05] MEDS ORDERED: BENTYL 10 MG CA10 M1 PO (14:59)
[2019-08-05] MEDS ORDERED: ZOFRAN ODT4 MG PO (14:59)
[2019-08-05 15:48] VITALS: BP 154/111
[2019-08-05 15:59] VITALS: BP 154/111
--- NOTE | 2019-08-05 16:47 | NUR ---
DISCHARGE INSTRUCTIONS REVIEWED WITH PT, EDUCATION INFORMATION, DISCHARGE INSTRUCTIONS AND RXS SENT WITH PT. TELE AND PIV DC'D EARLIER. ALL QUESTIONS ANSWERED.
== END 2019-08-05 16:49 | disposition home or self-care (01) | DRG 872 ==
LOC: ER 06:20 → 3W 09:23 → EROBS 09:23 → 3W 10:44
PROVIDERS: Emergency Medicine; Internal Medicine; Nurse Practitioner; ADMIT Hospitalist
DX: A41.9 Sepsis, unspecified organism (principal); K86.1 Other chronic pancreatitis; E87.2 Acidosis; I10 Essential (primary) hypertension; K21.9 Gastro-esophageal reflux disease without esophagitis; F41.9 Anxiety disorder, unspecified; M54.16 Radiculopathy, lumbar region; E83.42 Hypomagnesemia; E87.6 Hypokalemia; R74.0 Nonspecific elevation of levels of transaminase and lactic acid dehydrogenase [LDH]; K76.0 Fatty (change of) liver, not elsewhere classified; E78.1 Pure hyperglyceridemia; E78.5 Hyperlipidemia, unspecified; F10.10 Alcohol abuse, uncomplicated; K75.9 Inflammatory liver disease, unspecified; Z87.440 Personal history of urinary (tract) infections; Z71.41 Alcohol abuse counseling and surveillance of alcoholic; Z90.49 Acquired absence of other specified parts of digestive tract; Z83.3 Family history of diabetes mellitus; Z84.1 Family history of disorders of kidney and ureter; Z80.9 Family history of malignant neoplasm, unspecified
CPT/HCPCS: 10879

== ENCOUNTER 2019-08-20 05:17 | Emergency (ER) | payer BC ==
[~2019-08-20] VITALS: Ht 162.6 cm; Wt 77.1 kg
[~2019-08-20 05:17] MED LIST changes: +CYCLOBENZAPRINE5 MG PO; +GABAPENTIN 100100 MG PO; +MOBIC7.5 MG PO; +NEURONTIN 300M300 M2 PO; +NIACIN SR 250250 MG PO; +[UNRECOGNIZED DRUG - REMARK]
[2019-08-20] MEDS ORDERED: TOPROL XL25 MG PO (05:33)
[2019-08-20 07:07] LABS: URINE BILIRUBIN 2+ (Negative); URINE BLOOD TRACE (Negative); URINE CLARITY CLEAR; URINE COLOR YELLOW; URINE GLUCOSE-RANDOM* NEGATIVE (Negative); URINE KETONES NEGATIVE (Negative); URINE LEUKOCYTES-REFLEX NEGATIVE (Negative); URINE NITRITE-REFLEX NEGATIVE (Negative); URINE PROTEIN (DIPSTICK) TRACE (Negative); URINE SPECIFIC GRAVITY >= 1.030 (1.005-1.035)
[2019-08-20 07:10] LABS: ICTOTEST (BILI CONFIRMATORY) Positive (Negative)
[2019-08-20 08:26] LABS: BASOPHILS 0.5 % (0.0-2.0); EOSINOPHILS 2.1 % (0.0-3.0); HEMATOCRIT 40.4 % (37.0-47.0); HEMOGLOBIN 13.6 gm/dL (12.0-15.0); LYMPHOCYTES 33.8 % (24.0-44.0); MCH 35.2 pg (26.0-34.0); MCHC 33.8 g/dL (28.0-37.0); MCV 104.2 fL (80.0-100.0); MONOCYTES 6.7 % (1.0-8.0); PLATELET COUNT 497 thou/uL (150-400); POLYS 56.9 % (36.0-66.0); RBC 3.88 mil/uL (4.20-5.00); RDW 14.2 % (10.5-14.5); WBC 8.8 thou/uL (4.0-11.0)
[2019-08-20 08:58] LABS: CREATININE 0.9 mg/dL (0.6-1.0); POTASSIUM 3.9 mmol/L (3.5-5.1)
[2019-08-20 08:59] LABS: MAGNESIUM 1.6 mg/dL (1.8-2.4)
[2019-08-20] MEDS ORDERED: ZOFRAN ODT4 MG PO (09:16)
[2019-08-20 09:48] VITALS: BP 127/88
--- NOTE | 2019-08-20 17:37 | EKG ---
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: QUINN : 1985 Requested By: Rocky Haddad Order Number: [id number] MD: Clint Mujica Measurements Intervals [place] Rate: 112 P: 33 [place]: 114 QRS: 63 QRSD: 88 T: -3 QT: 341 QTc: 466 Interpretive Statements Sinus tachycardia Nonspecific ST segment abnormality Compared to ECG 08/03/2019 07:16:19 No significant change was found Electronically Signed On 08-20-2019 17:36:50 AUTOMATIC CAR WASH ATTENDANT by Clint Mujica [email or web address] <ELECTRONICALLY SIGNED> By: Clint Mujica MD, [facility] 08/20/19 1736 0759 0759 Clint Mujica MD, FACC /EPI
--- NOTE | 2019-08-20 17:38 | EKG ---
[place] [address] [facility] [place] [address] ELECTROCARDIOGRAM REPORT Name: KIM ARGUELLO Room #: 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: : 1985 Requested By: Rocky Haddad Order Number: [id number] MD: Clint Mujica Measurements Intervals [place] Rate: 123 P: 54 [place]: 113 QRS: 50 QRSD: 89 T: -20 QT: 338 QTc: 484 Interpretive Statements Sinus tachycardia Nonspecific ST segment abnormality Borderline prolonged QT interval Compared to ECG 08/03/2019 07:16:19 No significant change was found Electronically Signed On 08-20-2019 17:37:55 HORTICULTURE PROFESSOR by Clint Mujica [email or web address] <ELECTRONICALLY SIGNED> By: Clint Mujica MD, [facility] 08/20/19 1737 4 Clint Mujica MD, FAC /EPI
== END 2019-08-20 09:57 | disposition home or self-care (01) ==
LOC: ER 05:17
PROVIDERS: Emergency Medicine
DX: M54.5 Low back pain (principal); R11.2 Nausea with vomiting, unspecified; I10 Essential (primary) hypertension; K21.9 Gastro-esophageal reflux disease without esophagitis; Z79.899 Other long term (current) drug therapy; Z98.890 Other specified postprocedural states

== ENCOUNTER → 2019-08-21 | Outpatient (CLI) | payer BC ==
[~2019-08-21] VITALS: Ht 162.6 cm; Wt 80.3 kg
[~2019-08-21] MED LIST changes: +KEFLEX500 M1 PO
[2019-08-21 09:59] VITALS: BP 164/98
--- NOTE | 2019-08-21 10:09 | NUR ---
Pain Clinic Assessment: 1. History of Osteoarthritis: DENIES History of Rheumatoid Arthritis: DENIES 2. Height: 5 ft. 4 in. 162.6 cm. Weight: 177.0 lb. oz. 80.287 kg. Patient's BMI: 30.4 3. Vital Signs: BP: 164/98 Pulse: 110 Resp: 16 Temp: 02 Sat: 97 ECG Mon: 4. Pain Intensity: 9 5. Fall Risk: Dizziness: N Needs help standing or walking: Y Fallen in the last 3 months: N Fall risk comments: USING WALKER 6. Patient on Blood Thinner: None 7. History of Hypertension: Y 8. Opioid Therapy greater than 6 weeks: N Opiate Contract Signed: 9. Risk Assessment Tool Provided: 10. Functional Assessment Tool: 11. Recreational Drug Use: Never Drug Type: Tobacco Use: Never Smoker Tobacco Type: Amount or Packs/day: How Many Years: Alcohol Use: Yes Frequency: Daily Quant:
--- NOTE | 2019-09-02 13:08 | HPC ---
[facility] [address] [place] [address] PAIN MANAGEMENT CONSULTATION Name: KIM ARGUELLO Room #: REG [facility] Dg#: [id number] Admission: 08/21/19 Attend Phys: Jhonny Rosado MD Discharge: Date of : 89 Report #: [id number] THIS REPORT FOR: //name// CC: Cristian Rosado DATE OF SERVICE: 08/21/2019 CHIEF COMPLAINT: Low back pain and pain radiating down to the hips and to the knee. HISTORY: The patient is a 34-year-old female who has been experiencing pain in her low back and states that she has pain that is radiating down into her hips. It involves the lower to mid portion of her back. Feels that her pain transverse through the rear of her hips and knees. Pain is worse with prolonged standing as well as with movement. Squatting can be problematic. She has tried ice and heat. These worked at first, but are less effective now. Notes that her pain is continuous, transient, shooting. Rates it as an 8-9/10. Notes that her pain can be quite problematic, especially in the evening. 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 Does note some numbness and tingling in the lower portion of her legs. States that she has fallen. Feels that her right side is more problematic. Does note some problems with driving. States that she has had some sepsis in the past. She is not sure whether or not she has an infection at this juncture. She has tried tramadol, meloxicam, and gabapentin. The patient has had a history of elevated liver function tests. The patient has had leukocytosis. ALLERGIES: No known drug allergies. CURRENT MEDICATIONS: Zofran 4 mg, metoprolol 25 mg, Protonix 40 mg, Neurontin 100 mg t.i.d., Mobic 7.5 mg, niacin 250 grams, Bentyl 10 mg 4 times daily p.r.n. needed, Ultram 50 mg q.6 hours p.r.n., multivitamin, Xanax 0.5 mg b.i.d. PAST MEDICAL HISTORY: 1. Pancreatitis, status post biliary stent placement. 2. Cholelithiasis. 3. Hypertriglyceridemia. 4. Hypertension. 5. GERD. 6. Anxiety. 7. Herniated disk. 8. History of sepsis. 9. History of elevated liver function tests. PAST SURGICAL HISTORY: on 05/03/2016, cholecystectomy, 04/30/2018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 She has not been working for the last 3 weeks. REVIEW OF SYSTEMS: Wears glasses, blurred vision, decreased appetite, numbness and tingling sensation. LABORATORY DATA: No new laboratory values are available at the time of our interview. PAIN CLINIC ASSESSMENT AND PQRS: 1. The patient denies history of osteoarthritis. Denies rheumatoid arthritis. 2. Height 5 feet 4 inches, weight 177 pounds, BMI is 30.4. 3. Vital signs: Blood pressure 164/98, pulse 110, respiratory rate 16, room air saturation 97%. 4. Pain intensity, 05/26. 5. Fall history, the patient has not fallen. She is using a walker. 6. Blood thinner, the patient is not on a blood thinning medication. 7. Hypertension, the patient is being treated for hypertension. 8. Opioids greater than 6 weeks. The patient is receiving medications from her primary physicians. 9. Functional assessment tool, . 10. Recreational drug use, the patient denies. 11. Tobacco, the patient denies use of tobacco. 12. Alcohol, the patient drinks alcoholic beverages. PHYSICAL EXAMINATION: GENERAL: The patient is a well-developed, well-nourished female. She appears her stated age. She is alert and oriented x 3. Her affect is appropriate. Speech is fluent. HEENT: Normocephalic, atraumatic. Extraocular eye muscles intact. Sclerae nonicteric. Mucous membranes are moist. LUNGS: Generally clear. HEART: Tachycardic. ABDOMEN: The patient denies abdominal pain. MUSCULOSKELETAL: Without significant scoliosis, kyphosis, or lordosis. The patient does have pain and discomfort in the lower portion of her back with pain that radiates in the lower back and down to the hip and into her knee primarily on the right side. Positive straight leg raise. Upper extremity muscle strength judged to be 5-/5 for the major muscle groups in the upper extremity. Lower extremity, 5-/5 for the major muscle groups in the lower extremity. IMPRESSION: 1. Lumbar radicular pain with pain down the right hip, leg and into the knee. 2. History of sepsis, etiology remains somewhat enigmatic. It is difficult to ascertain whether the patient has had a full workup and is cleared of her [facility] [address] [place] [address] PAIN MANAGEMENT CONSULTATION Name: KIM ARGUELLO Room #: REG [facility]#: [id number] Admission: 08/21/19 Attend Phys: Jhonny Rosado MD Discharge: Date of : 89 Report #: [id number] sepsis. The patient has had some elevated liver function tests with noted leukocytosis. RECOMMENDATIONS: We explained to the patient that we would be willing to proceed with an epidural steroid injection. The question of sepsis and what level are possible, continued problems with the UTI or pyelonephritis is present. We will have the patient follow up with her primary physician and have this question put to rest as to whether or not there is an infection ongoing. When the patient is at a point where she has been adequately evaluated for sepsis, we will consider the possibility of an epidural steroid injection. The patient will return to the clinic after she has been evaluated and considered to have undergone an adequate workup for sepsis. The patient will and could be helped by physical therapy. A script for physical therapy 3 times a week for 3 weeks has been provided given that the patient is having lumbar radicular pain as well as hip pain. The patient will return to the pain clinic in the future. We would like to thank you for letting us participate in her care. We hope she continues to improve. <ELECTRONICALLY SIGNED> By: Jhonny Rosado MD 09/02/19 1308 1741 0036 Jhonny Rosado MD /PMT
== END ==
LOC: PAIN 06:51
DX: M54.16 Radiculopathy, lumbar region (principal); I10 Essential (primary) hypertension; K21.9 Gastro-esophageal reflux disease without esophagitis; F41.9 Anxiety disorder, unspecified; E78.00 Pure hypercholesterolemia, unspecified

== ENCOUNTER 2019-08-22 07:55 | Emergency (ER) | payer BC ==
[~2019-08-22] VITALS: Ht 162.6 cm; Wt 77.1 kg
[~2019-08-22 07:55] MED LIST changes: -KEFLEX500 M1 PO
[2019-08-22 08:04] VITALS: BP 154/103
[2019-08-22 09:02] LABS: ABSOLUTE NEUTROPHILS 4.5 thou/uL (1.4-8.2); BASOPHILS 0.6 % (0.0-2.0); EOSINOPHILS 1.1 % (0.0-3.0); HEMATOCRIT 39.9 % (37.0-47.0); HEMOGLOBIN 13.5 gm/dL (12.0-15.0); MCH 35.6 pg (26.0-34.0); MCHC 33.9 g/dL (28.0-37.0); MCV 105.1 fL (80.0-100.0); MONOCYTES 6.9 % (1.0-8.0); PLATELET COUNT 323 thou/uL (150-400); POLYS 56.4 % (36.0-66.0); RDW 13.7 % (10.5-14.5)
[2019-08-22 09:08] LABS: CALCIUM 9.7 mg/dL (8.5-10.1); CREATININE 0.8 mg/dL (0.6-1.0); POTASSIUM 4.4 mmol/L (3.5-5.1)
[2019-08-22 09:09] LABS: MAGNESIUM 1.5 mg/dL (1.8-2.4)
[2019-08-22 10:20] LABS: URINE BILIRUBIN NEGATIVE (Negative); URINE BLOOD TRACE (Negative); URINE CLARITY SL CLOUDY; URINE COLOR YELLOW; URINE GLUCOSE-RANDOM* TRACE (Negative); URINE KETONES NEGATIVE (Negative); URINE NITRITE-REFLEX NEGATIVE (Negative); URINE PROTEIN (DIPSTICK) NEGATIVE (Negative); URINE SPECIFIC GRAVITY 1.025 (1.005-1.035); URINE UROBILINOGEN 0.2 E.U./dl (0.2-1.0)
[2019-08-22 10:22] LABS: URINE LEUKOCYTES-REFLEX 2+ (Negative)
[2019-08-22 10:28] LABS: BACTERIA-REFLEX 1-9 Few /HPF (None Seen); CASTS None Seen /LPF (None Seen); CRYSTALS None Seen /LPF (None Seen); SQUAMOUS 4-10 Moderate /LPF (0-3); URINE RBC None Seen /HPF (0-2); URINE WBC-REFLEX 0-5 Rare /HPF (0-5)
[2019-08-22 11:15] VITALS: BP 148/97
[2019-08-22] MEDS ORDERED: KEFLEX500 M1 PO (14:16)
== END 2019-08-22 23:11 | disposition home or self-care (01) ==
LOC: ER 07:55 → EROBS 11:29 → ER 11:29 → EROBS 23:11
PROVIDERS: Emergency Medicine
DX: N39.0 Urinary tract infection, site not specified (principal); I10 Essential (primary) hypertension; Z90.49 Acquired absence of other specified parts of digestive tract; Z98.890 Other specified postprocedural states

== ENCOUNTER 2019-10-10 08:38 | Emergency (ER) | payer BC ==
[~2019-10-10] VITALS: Ht 162.6 cm; Wt 77.1 kg
[~2019-10-10 08:38] MED LIST changes: +KEFLEX500 M1 PO
[2019-10-10 09:06] LABS: ABSOLUTE NEUTROPHILS 7.2 thou/uL (1.4-8.2); BASOPHILS 1.4 % (0.0-2.0); EOSINOPHILS 0.5 % (0.0-3.0); HEMATOCRIT 44.7 % (37.0-47.0); HEMOGLOBIN 14.8 gm/dL (12.0-15.0); LYMPHOCYTES 23.5 % (24.0-44.0); MCH 33.4 pg (26.0-34.0); MCV 101.2 fL (80.0-100.0); MONOCYTES 7.3 % (1.0-8.0); PLATELET COUNT 403 thou/uL (150-400); POLYS 67.3 % (36.0-66.0); RBC 4.42 mil/uL (4.20-5.00); RDW 12.8 % (10.5-14.5); WBC 10.8 thou/uL (4.0-11.0)
[2019-10-10 09:14] LABS: CALCIUM 9.6 mg/dL (8.5-10.1); CREATININE 0.9 mg/dL (0.6-1.0); POTASSIUM 3.9 mmol/L (3.5-5.1)
[2019-10-10 09:20] LABS: ALBUMIN 4.2 g/dL (3.4-5.0); TOTAL BILIRUBIN 0.7 mg/dL (<0.1-1.0); TOTAL PROTEIN 8.3 g/dL (6.4-8.2)
[2019-10-10 10:47] VITALS: BP 136/95
--- NOTE | 2019-10-10 10:54 | EKG ---
[place] [address] [facility] [place] [address] ELECTROCARDIOGRAM REPORT Name: KIM ARGUELLO Room #: [facility]#: [id number] Admission: 10/10/19 Attend Phys: Discharge: Date of : 89 Report #: [id number] THIS REPORT FOR: //name// [facility] ED Test Date: 2019-10-10 Test Time: 08:53:35 Pat Name: KIM ARGUELLO Department: Room: Gender: F Tie Carrier: JEROMY : 1985 Requested By: Reji Smith Order Number: [id number] MD: Ronnell Atkins Measurements Intervals [place] Rate: 114 P: 61 [place]: 114 QRS: 64 QRSD: 94 T: 3 QT: 349 QTc: 481 Interpretive Statements Sinus tachycardia Probable left atrial enlargement Borderline repolarization abnormality Borderline prolonged QT interval Baseline wander in lead(s) V1,V2 Compared to ECG 08/20/2019 09:45:39 ST (T wave) deviation no longer present Electronically Signed On 10-10-2019 10:53:43 CORN GRINDER by Ronnell Atkins [email or web address] <ELECTRONICALLY SIGNED> By: Ronnell Atkins MD 10/10/19 1053 Ronnell Atkins MD /MALVIN
[2019-10-11] MEDS ORDERED: ZOFRAN ODT4 MG PO (17:57)
== END 2019-10-10 11:00 | disposition home or self-care (01) ==
LOC: ER 08:38
PROVIDERS: Emergency Medicine
DX: R19.7 Diarrhea, unspecified (principal); R53.1 Weakness; Z90.49 Acquired absence of other specified parts of digestive tract; Z98.890 Other specified postprocedural states

== ENCOUNTER 2019-10-11 15:07 | Emergency (ER) | payer BC ==
[~2019-10-11] VITALS: Ht 162.6 cm; Wt 77.1 kg
[2019-10-11 15:10] VITALS: BP 158/91
[2019-10-11 16:31] LABS: ABSOLUTE NEUTROPHILS 7.8 thou/uL (1.4-8.2); BASOPHILS 0.6 % (0.0-2.0); EOSINOPHILS 1.3 % (0.0-3.0); HEMATOCRIT 39.4 % (37.0-47.0); HEMOGLOBIN 13.2 gm/dL (12.0-15.0); LYMPHOCYTES 27.4 % (24.0-44.0); MCH 33.9 pg (26.0-34.0); MCHC 33.5 g/dL (28.0-37.0); MCV 101.3 fL (80.0-100.0); MONOCYTES 8.2 % (1.0-8.0); PLATELET COUNT 361 thou/uL (150-400); POLYS 62.5 % (36.0-66.0); RBC 3.89 mil/uL (4.20-5.00); WBC 12.5 thou/uL (4.0-11.0)
[2019-10-11 16:45] LABS: CALCIUM 9.7 mg/dL (8.5-10.1); CREATININE 0.6 mg/dL (0.6-1.0); POTASSIUM 4.9 mmol/L (3.5-5.1)
[2019-10-11 16:51] LABS: ALBUMIN 3.9 g/dL (3.4-5.0); TOTAL BILIRUBIN 0.8 mg/dL (<0.1-1.0); TOTAL PROTEIN 7.4 g/dL (6.4-8.2)
[2019-10-11] MEDS ORDERED: ZOFRAN ODT4 MG PO (17:57)
== END 2019-10-11 20:04 | disposition home or self-care (01) ==
LOC: ER 15:07
PROVIDERS: Emergency Medicine
DX: R19.7 Diarrhea, unspecified (principal); R11.2 Nausea with vomiting, unspecified; Z90.49 Acquired absence of other specified parts of digestive tract; Z98.890 Other specified postprocedural states

== ENCOUNTER 2019-10-28 16:43 | Emergency (ER) | payer BC ==
[~2019-10-28] VITALS: Ht 162.6 cm; Wt 77.1 kg
[2019-10-28 18:43] LABS: ABSOLUTE NEUTROPHILS 9.4 thou/uL (1.4-8.2); BASOPHILS 0.8 % (0.0-2.0); EOSINOPHILS 0.3 % (0.0-3.0); HEMATOCRIT 42.3 % (37.0-47.0); LYMPHOCYTES 26.8 % (24.0-44.0); MCHC 33.1 g/dL (28.0-37.0); MCV 99.7 fL (80.0-100.0); MONOCYTES 6.9 % (1.0-8.0); PLATELET COUNT 404 thou/uL (150-400); POLYS 65.2 % (36.0-66.0); RBC 4.24 mil/uL (4.20-5.00); RDW 13.6 % (10.5-14.5); WBC 14.4 thou/uL (4.0-11.0)
[2019-10-28 18:56] LABS: ANION GAP 11 mmol/L (7-16); BUN 4 mg/dL (7-18); CHLORIDE 94 mmol/L (98-107); CO2 25 mmol/L (21-32); CREATININE 0.8 mg/dL (0.6-1.0); GLUCOSE 109 mg/dL (74-106); POTASSIUM 4.5 mmol/L (3.5-5.1); SODIUM 130 mmol/L (136-145)
[2019-10-28 19:00] LABS: URINE BILIRUBIN NEGATIVE (Negative); URINE BLOOD NEGATIVE (Negative); URINE CLARITY CLEAR; URINE COLOR YELLOW; URINE GLUCOSE-RANDOM* NEGATIVE (Negative); URINE KETONES NEGATIVE (Negative); URINE LEUKOCYTES-REFLEX NEGATIVE (Negative); URINE NITRITE-REFLEX NEGATIVE (Negative); URINE PROTEIN (DIPSTICK) NEGATIVE (Negative); URINE SPECIFIC GRAVITY 1.015 (1.005-1.035); URINE UROBILINOGEN 0.2 E.U./dl (0.2-1.0)
[2019-10-28 19:06] LABS: ALBUMIN 4.2 g/dL (3.4-5.0); SGOT 332 U/L (15-37); SGPT 170 U/L (30-65); TOTAL BILIRUBIN 1.2 mg/dL (<0.1-1.0); TOTAL PROTEIN 8.3 g/dL (6.4-8.2); TROPONIN-I <0.06 ng/mL (<0.06)
[2019-10-28] MEDS ORDERED: NORCO 5-325 TA1 EAC1 PO (19:48)
[2019-10-28 20:00] VITALS: BP 140/94
--- NOTE | 2019-10-29 08:15 | EKG ---
[facility] [place] [address] ELECTROCARDIOGRAM REPORT Name: KIM ARGUELLO Room #: DEP [facility]#: [id number] Admission: 10/28/19 Attend Phys: Discharge: 10/28/19 Date of : 89 Report #: [id number] THIS REPORT FOR: cc: Cristian Snow Kent DO Lundgren,Clint Clay MD [facility] THIS REPORT FOR: //name// [facility] ED Test Date: 2019-10-28 Test Time: 17:43:40 Pat Name: KIM ARGUELLO Department: Room: Gender: F Copper Tapper: SOPHIE : 1985 Requested By: Daniel Fair Order Number: [id number] MD: Clint uMjica Measurements Intervals [place] Rate: 101 P: 12 [place]: 107 QRS: 55 QRSD: 90 T: 8 QT: 356 QTc: 462 Interpretive Statements Sinus tachycardia Otherwise normal tracing Compared to ECG 10/10/2019 08:53:35 No significant changes Electronically Signed On 10-29-2019 8:14:51 MANUFACTURING TEAM MEMBER by Clint Mujica [email or web address] <ELECTRONICALLY SIGNED> By: Clint Mujica MD, FAC 10/29/1914 1743 1743 Clint Mujica MD, [facility] /EPI
== END 2019-10-28 20:00 | disposition home or self-care (01) ==
LOC: ER 16:43
PROVIDERS: Physician Assistant
DX: R07.89 Other chest pain (principal); G89.29 Other chronic pain; M79.606 Pain in leg, unspecified; R53.1 Weakness; F41.9 Anxiety disorder, unspecified; Z90.49 Acquired absence of other specified parts of digestive tract

== ENCOUNTER 2019-11-06 02:55 | Emergency (ER) | payer BC ==
[~2019-11-06] VITALS: Ht 162.6 cm; Wt 77.1 kg
[2019-11-06] MEDS ORDERED: B COMPLEX1 EACH PO (03:02)
[2019-11-06 03:22] LABS: URINE BILIRUBIN 1+ (Negative); URINE BLOOD TRACE (Negative); URINE CLARITY CLOUDY; URINE COLOR YELLOW; URINE GLUCOSE-RANDOM* 1+ (Negative); URINE KETONES TRACE (Negative); URINE LEUKOCYTES-REFLEX NEGATIVE (Negative); URINE NITRITE-REFLEX NEGATIVE (Negative); URINE PROTEIN (DIPSTICK) 1+ (Negative); URINE SPECIFIC GRAVITY >= 1.030 (1.005-1.035)
[2019-11-06 03:38] LABS: BACTERIA-REFLEX 1-9 Few /HPF (None Seen); MUCUS 4-6 Moderate strn/LPF (None Seen); SQUAMOUS 4-10 Moderate /LPF (0-3); URINE RBC 0-2 Rare /HPF (0-2); URINE WBC-REFLEX 0-5 Rare /HPF (0-5)
[2019-11-06 03:39] LABS: CALCIUM OXALATE >10 Many /LPF (None Seen); CASTS None Seen /LPF (None Seen)
[2019-11-06 03:39] LABS: HEMATOCRIT 36.4 % (37.0-47.0); HEMOGLOBIN 12.4 gm/dL (12.0-15.0); MCH 34.1 pg (26.0-34.0); MCV 100.5 fL (80.0-100.0); PLATELET COUNT 271 thou/uL (150-400); RBC 3.62 mil/uL (4.20-5.00); RDW 14.1 % (10.5-14.5); WBC 5.6 thou/uL (4.0-11.0)
[2019-11-06 03:49] LABS: CALCIUM 8.1 mg/dL (8.5-10.1); CREATININE 0.8 mg/dL (0.6-1.0); POTASSIUM 3.5 mmol/L (3.5-5.1)
[2019-11-06 03:54] LABS: ALBUMIN 3.5 g/dL (3.4-5.0); TOTAL BILIRUBIN 0.9 mg/dL (<0.1-1.0)
[2019-11-06] MEDS ORDERED: ZOFRAN ODT4 MG PO (04:55)
[2019-11-06 05:16] LABS: ABSOLUTE NEUTROPHILS 3.8 thou/uL (1.4-8.2); MACROCYTES 1+; PLATELET ESTIMATE NORMAL
[2019-11-06 05:17] LABS: ANISOCYTOSIS 1+; POIKILOCYTOSIS 1+
[2019-11-06 05:19] VITALS: BP 115/98
== END 2019-11-06 05:30 | disposition home or self-care (01) ==
LOC: ER 02:55
PROVIDERS: Emergency Medicine
DX: K76.0 Fatty (change of) liver, not elsewhere classified (principal); R11.2 Nausea with vomiting, unspecified; Z90.49 Acquired absence of other specified parts of digestive tract; Z98.890 Other specified postprocedural states

== ENCOUNTER 2020-01-10 19:01 | Inpatient (IN) | payer BC ==
[~2020-01-10] VITALS: Ht 162.6 cm; Wt 105.7 kg
--- NOTE | ~2020-01-10 | HC ---
[facility] [place] [address] CONSULTATION Name: KIM ARGUELLO Room #: 438-P ADM IN M.R.#: [id number] Admission: 01/10/20 Attend Phys: Magnolia Doan MD Discharge: Date of : 87 Report #: [id number] THIS REPORT FOR: cc: DREA - Family physician unknown FAM - Family physician unknown Andrés Venegas MD ~ CC: DREA unknown Magnolia Doan REASON FOR CONSULTATION: Elevated creatinine. REASON FOR PRESENTATION: Swollen legs and fever. HISTORY OF PRESENT ILLNESS: This is a 34-year-old with history of ethanol abuse and cholecystitis along with pancreatitis in the past. She presented to the hospital with abdominal pain, lower extremity swelling and was found to have thickening of the cecum consistent with colitis along with marked anasarca and hepatomegaly. The patient is known to have a biliary duct stent that was placed at [facility]. [facility] She denies excessive alcohol usage. However, when the patient presented to the hospital, her laboratory values were consistent with elevated liver enzymes. She had hyponatremia. She had hypokalemia. Creatinine was 0.8. She was admitted for further evaluation. She was ruled out for COVID. Over the last few days, her creatinine has been significantly going up. Most recent creatinine as of yesterday was up to 1.5 from a baseline of around 0.8. I was consulted to manage her acute kidney injury. PAST MEDICAL HISTORY: 1. Alcohol abuse. 2. Cholecystitis. 3. Biliary stent. 4. Pancreatitis. 5. Fatty liver. 6. GERD. 7. UTIs. 8. Anxiety disorder. ALLERGIES: None. HOME MEDICATIONS: 1. Bentyl. 2. Aspirin. 3. Gabapentin. 4. Alprazolam. SOCIAL HISTORY: Denies excessive alcohol usage. 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 No drug abuse. [facility] [address] [place] [address] CONSULTATION Name: KIM ARGUELLO Room #: 438-P [facility].#: [id number] Admission: 01/10/20 Attend Phys: Magnolia Doan MD Discharge: Date of : 89 Report #: [id number] FAMILY HISTORY: Hypertension. REVIEW OF SYSTEMS: GENERAL: Significant for occasional fever, but no chills. CARDIOVASCULAR: No chest pain. PULMONARY: No cough or hemoptysis. GASTROINTESTINAL: As per the history of present illness. GENITOURINARY: No frequency, no urgency. PHYSICAL EXAMINATION: VITAL SIGNS: Temperature 37.4, pulse rate is 118, respiratory rate is 18, blood pressure is 112/74. HEAD AND NECK: Icteric. CHEST: Decreased air entry bilaterally. CARDIOVASCULAR: No rub. ABDOMEN: Significant hepatomegaly and splenomegaly. LOWER EXTREMITIES: Extensive edema. LABORATORY VALUES: White blood cell count is 14.8, hemoglobin is 11.1. Sodium is 123, potassium is 2.9, BUN is 2, creatinine is 1.5. Total bilirubin is 24.5. AST is 181, ALT 69. Albumin is 2.0. IMPRESSION: 1. Acute kidney injury. 2. Fatty liver, alcoholic liver disease. 3. Coagulopathy. 4. End-stage liver disease. 5. Anasarca. 6. Hyponatremia. PLAN: 1. Overall, the patient's picture is not consistent with hepatorenal syndrome given her urine sodium. I will repeat appropriate urine studies. 2. Keep on albumin for now. 3. Will need aggressive diuresis given her significant anasarca. 4. Continue to replace electrolytes. 5. Discontinue Neurontin. 6. Watch urine output. 7. At this point, she is not in need for any midodrine or octreotide given her acceptable blood pressure. 8. We will continue to follow. By: 0613 0715 Andrés Venegas MD /nt
[~2020-01-10 19:01] MED LIST changes: +B COMPLEX1 EACH PO
[2020-01-10 19:05] VITALS: BP 121/73
[2020-01-10 19:42] LABS: ABSOLUTE NEUTROPHILS 11.2 thou/uL (1.4-8.2); BASOPHILS 0.5 % (0.0-2.0); EOSINOPHILS 0.1 % (0.0-3.0); HEMOGLOBIN 12.6 gm/dL (12.0-15.0); LYMPHOCYTES 15.7 % (24.0-44.0); MCH 36.9 pg (26.0-34.0); MCHC 34.1 g/dL (28.0-37.0); MCV 108.3 fL (80.0-100.0); MONOCYTES 8.2 % (1.0-8.0); PLATELET COUNT 259 thou/uL (150-400); POLYS 75.5 % (36.0-66.0); RBC 3.42 mil/uL (4.20-5.00); RDW 19.7 % (10.5-14.5); WBC 14.8 thou/uL (4.0-11.0)
[2020-01-10 19:50] LABS: ANION GAP 21 mmol/L (7-16); BUN 2 mg/dL (7-18); CALCIUM 7.9 mg/dL (8.5-10.1); CHLORIDE 90 mmol/L (98-107); CO2 17 mmol/L (21-32); CREATININE 0.8 mg/dL (0.6-1.0); GLUCOSE 257 mg/dL (74-106); POTASSIUM 3.3 mmol/L (3.5-5.1); SODIUM 128 mmol/L (136-145)
[2020-01-10 20:06] LABS: ALBUMIN 1.9 g/dL (3.4-5.0); LIPASE 34 U/L (73-393); SGOT 359 U/L (15-37); SGPT 138 U/L (30-65); TOTAL BILIRUBIN 17.8 mg/dL (<0.1-1.0); TOTAL PROTEIN 6.8 g/dL (6.4-8.2); TROPONIN-I <0.06 ng/mL (<0.06)
[2020-01-10] MEDS ORDERED: TOPROL XL50 MG PO (20:06)
[2020-01-10] MEDS ORDERED: TURMERIC500 M2 PO (20:07)
[2020-01-10] MEDS ORDERED: BAYER CHEWABLE81 MG PO (20:08)
[2020-01-10] MEDS ORDERED: APPLE CIDER VI300 MG PO (20:09)
[2020-01-10] MEDS ORDERED: NEURONTIN300 MG PO (20:09)
[2020-01-10 20:18] LABS: URINE BILIRUBIN 3+ (Negative); URINE BLOOD NEGATIVE (Negative); URINE CLARITY CLEAR; URINE COLOR YELLOW; URINE GLUCOSE-RANDOM* 3+ (Negative); URINE KETONES TRACE (Negative); URINE LEUKOCYTES-REFLEX NEGATIVE (Negative); URINE NITRITE-REFLEX NEGATIVE (Negative); URINE PROTEIN (DIPSTICK) NEGATIVE (Negative); URINE SPECIFIC GRAVITY 1.015 (1.005-1.035); URINE UROBILINOGEN 0.2 E.U./dl (0.2-1.0)
[2020-01-10 20:19] LABS: ICTOTEST (BILI CONFIRMATORY) Positive (Negative)
[2020-01-10 20:45] LABS: ANISOCYTOSIS 2+; MACROCYTES 1+
[2020-01-10 22:23] VITALS: BP 125/71
[2020-01-10 23:05] LABS: PROTIME 108.8 Seconds (9.3-11.4)
[2020-01-10 23:17] LABS: APTT 87.2 Seconds (24.5-32.8); INR 10.6
[2020-01-11] VITALS (7 sets, daily range): BP systolic 99–127; BP diastolic 55–88
--- NOTE | 2020-01-11 02:50 | NUR ---
PT ARRIVED TO FLOOR VIA CART. ISOLATION PRECAUTIONS IN PLACE PER COVID-19 R/O. ADMISSION COMPLETED, CARE PLAN IN PLACE, AN APPROPRIATE INTERVENTIONS ADDED. PT IS A/OX4, WITH SOA ON EXERTION. BLLE+2 AND SKIN IS VERY JAUNDICE. LASIX GIVEN AND EXTERNAL CATH IN PLACE. PT STILL HAVING DIFFICULT TIME URINATION. BLADDER SCAN SHOWED 786ml. ASSISTED PT TO BSC AND RECORDED 750ML JAUNDICE COLOR URINE. PAIN MANAGEMENT, IVPB ANTIBIOTICS AND K+ REPLACEMENT POC NOW.
[2020-01-11 07:05] LABS: HEMATOCRIT 32.3 % (37.0-47.0); HEMOGLOBIN 11.1 gm/dL (12.0-15.0); MCH 36.6 pg (26.0-34.0); MCHC 34.2 g/dL (28.0-37.0); MCV 106.8 fL (80.0-100.0); RBC 3.02 mil/uL (4.20-5.00); RDW 18.9 % (10.5-14.5); WBC 14.8 thou/uL (4.0-11.0)
[2020-01-11 07:15] LABS: PROTIME 129.2 Seconds (9.3-11.4)
[2020-01-11 07:19] LABS: CALCIUM 7.1 mg/dL (8.5-10.1); CREATININE 0.9 mg/dL (0.6-1.0)
[2020-01-11 07:23] LABS: INR 12.5
[2020-01-11 07:24] LABS: POTASSIUM 2.6 mmol/L (3.5-5.1)
--- NOTE | 2020-01-11 07:58 | EKG ---
[facility] [place] [address] ELECTROCARDIOGRAM REPORT Name: KIM ARGUELLO Room #: 355- ADM IN M.R.#: [id number] Admission: 01/10/20 Attend Phys: Ramses Sharp MD Discharge: Date of : 89 Report #: [id number] THIS REPORT FOR: cc: FAM - Family physician unknown FAM - Family physician unknown Clint Mujica MD [facility] THIS REPORT FOR: //name// [facility] ED Test Date: 2020-01-10 Test Time: 19:09:21 Pat Name: KIM ARGUELLO Department: Room: [facility] Gender: F Rail Specialist: LIANNE : 1985 Requested By: Izzy Stacy Order Number: [id number] MD: Clint Mujica Measurements Intervals [place] Rate: 125 P: 47 AR: 116 QRS: 57 QRSD: 90 T: -31 QT: 375 QTc: 541 Interpretive Statements Sinus tachycardia Nonspecific ST and T wave abnormality Prolonged QT interval Compared to ECG 10/28/2019 17:43:40 T-wave abnormality now present Prolonged QT interval now present Electronically Signed On 01-11-2020 7:56:39 CDT by Clint Mujica [email or web address] <ELECTRONICALLY SIGNED> By: Clint Mujica MD, [facility] 01/11/20 0756 08 08 Clint Mujica MD, [facility] /EPI
[2020-01-11 09:24] LABS: CREATININE 0.9 mg/dL (0.6-1.0); MAGNESIUM 1.5 mg/dL (1.8-2.4); PHOSPHORUS 1.5 mg/dL (2.5-4.9)
[2020-01-11 09:33] LABS: POTASSIUM 2.6 mmol/L (3.5-5.1)
[2020-01-11 10:37] LABS: FOLIC ACID 7.4 ng/mL (8.6-58.9)
[2020-01-11 11:14] LABS: URINE BILIRUBIN 3+ (Negative); URINE BLOOD NEGATIVE (Negative); URINE CLARITY CLEAR; URINE COLOR YELLOW; URINE GLUCOSE-RANDOM* NEGATIVE (Negative); URINE KETONES NEGATIVE (Negative); URINE LEUKOCYTES NEGATIVE (Negative); URINE NITRITE NEGATIVE (Negative); URINE PROTEIN (DIPSTICK) NEGATIVE (Negative); URINE UROBILINOGEN 0.2 E.U./dl (0.2-1.0)
[2020-01-11 11:17] LABS: ICTOTEST (BILI CONFIRMATORY) Positive (Negative)
[2020-01-11 11:19] LABS: AMP/METHAMP Negative (Negative); BARBITURATES Negative (Negative); BENZODIAZEPINES Negative (Negative); COCAINE Negative (Negative); METHADONE Negative (Negative); OPIATES POSITIVE (Negative); PCP Negative (Negative)
--- NOTE | 2020-01-11 12:22 | EKG ---
[facility] [place] [address] ELECTROCARDIOGRAM REPORT Name: KIM ARGUELLO Room #: 355- ADM IN M.R.#: [id number] Admission: 01/10/20 Attend Phys: Magnolia Doan MD Discharge: Date of : 87 Report #: [id number] THIS REPORT FOR: cc: FAM - Family physician unknown FAM - Family physician unknown Clint Mujica MD [facility] THIS REPORT FOR: //name// [facility] Test Date: 2020-01-11 Test Time: 08:51:26 Pat Name: KIM ARGUELLO Department: Room: 355 Gender: F Senior Office Support Assistant Sosa: BRANDI : 1985 Requested By: Magnolia Doan Order Number: [id number] MD: Clint Mujica Measurements Intervals [place] Rate: 107 P: 62 [place]: 120 QRS: 43 QRSD: 96 T: -3 QT: 412 QTc: 550 Interpretive Statements Sinus tachycardia Nonspecific ST segment abnormality Prolonged QT interval Compared to ECG 01/10/2020 19:09:21 No significant change was found Electronically Signed On 01-11-2020 12:20:24 CDT by Clint Mujica [email or web address] <ELECTRONICALLY SIGNED> By: Clint Mujica MD, [facility] 01/11/20 1220 0851 0851 Clint Mujica MD, [facility] /EPI
[2020-01-11 14:20] LABS: CALCIUM 6.9 mg/dL (8.5-10.1); MAGNESIUM 1.9 mg/dL (1.8-2.4); PHOSPHORUS 1.1 mg/dL (2.5-4.9); POTASSIUM 3.2 mmol/L (3.5-5.1)
[2020-01-11 14:21] LABS: PROTIME 80.3 Seconds (9.3-11.4)
[2020-01-11 14:25] LABS: INR 7.8
--- NOTE | 2020-01-11 14:58 | NUR ---
PT CARE ASSUMED AT 0700, PT ALAERT AND ORIENTED X4, COMPLAIN OF NAUSEA, NO VOMITING NOTED, ZOFRAN GIVEN OER ORDER. PT COMPLAIN OF BACK LOWER AND HIP PAIN, PAIN MEDICATION GIVEN PER ORDER. DR. LAYNE PAGED ABOUT CRITICAL LABS, ORDERS PLACED IN PER MD. PT DENIES ANYOTHER NEEDS AT THE MOMENT. CALL LIGHT AND TABLE WITHIN REACH. WILL CONTINUE TO MONITOR.
--- NOTE | 2020-01-11 17:18 | NUR ---
VAT CONSULTED FOR A PICC FOR THIS PT WITH LIVER FAILURE AND AN INR OF 10.9. A 4FRDBLPICC PLACED RUABASILIC. CXR REVEALED THE TIP AT THE [facility] AND RELEASED FOR USE PLEASE SEE INSERTION NOTE FOR DETAILS
--- NOTE | 2020-01-11 18:22 | NUR ---
PT ARRIVED FROM 3 AT 1715. ASSESSED, PT BROUGHT TRAY OF FOOD. INSULIN GIVEN ON 3W PER RN JOANNE LEAHY, REVIEWED POC, PT VERBALIZED UNDERSTANDING, MED GIVEN FOR BACK PAIN 04/25. WILL MONITOR
--- NOTE | 2020-01-11 19:12 | NUR ---
1451 2ND PLASMA TRANSFUSION STARTED AFTER VITALS ASSESSMENT, LUNGS DIMINISHED. 1506 15MINS AFTER TRANSFUSION STARTED NO REATION NOTED. 1620 TRANSFUSION COMPLETED, VITALS SIGNS DONE, NO REACTION NOTED.
--- NOTE | 2020-01-11 19:14 | NUR ---
1735 PT TRANSFERRED TO [facility], ALL BELONGING PACKED AND SENT DOWN. REPORT GIVEN LUISANA.
[2020-01-12 05:54] VITALS: BP 108/66
--- NOTE | 2020-01-12 06:09 | NUR ---
PT A&O X4 ABLE TO MAKE NEEDS KNOWN. OCC C/O BACK PAIN EFFECTIVELY CONTROLLED VIA PRN PAIN MEDS. ACCU CHECKS R/T LIVER DISEASE. PT JAUNDICED REPORTED LAST ALCOHOL REPORTED ON 11/11 NO ALCOHOL W/DRAWAL SYMPTOMS NOTED.
[2020-01-12 07:15] VITALS: BP 98/61
[2020-01-12 09:49] LABS: PROTIME 26.7 Seconds (9.3-11.4)
[2020-01-12 09:54] LABS: MAGNESIUM 1.8 mg/dL (1.8-2.4); PHOSPHORUS 1.5 mg/dL (2.5-4.9); POTASSIUM 3.1 mmol/L (3.5-5.1)
[2020-01-12 10:06] LABS: ALBUMIN 1.8 g/dL (3.4-5.0); DIRECT BILIRUBIN 15.7 mg/dL (<0.1-0.2); TOTAL PROTEIN 5.5 g/dL (6.4-8.2)
[2020-01-12 10:07] LABS: TOTAL BILIRUBIN 19.8 mg/dL (<0.1-1.0)
[2020-01-12 10:31] LABS: INR 2.6
--- NOTE | 2020-01-12 12:03 | NUR ---
Received awake on bed. On nothing per orem- pt informed and aware, for abdominal ultrasound done. A+Ox4. On heart monitoring- ST; no complaints of chest pain, crushing or heaviness feeling. On room air. Pt went for Abdominal ultrasound this morning via wheelchair, tolerated procedure well; transferred to bed safely; breakfast taken after coming back from ultrasound, tolerated well, no nausea, no vomiting and no abdominal pain noted. On blood sugar monitoring- taken and recorded accordingly; with sliding scale insulin ordered- given as prescribed. Assisted in ADLs. With double lumen PICC line at R upper arm- flushing well; dressing C/D/I. With SL at L AC- intact. On fluid restricion- pt informed and aware. With Bilat LE edema, non weeping- kept elevated, skin intact. Complained of lower back to R hip pain- pt able to reposition herself, due PRN pain meds given as prescribed. Assisted in ADLs. With orders for blood draw from PICC line- done and specimen sent to lab. To continue monitoring patient. Pt seen by Dr Whitehead and Dr Cedeno- education on alcohol cessation given to patient.
[2020-01-12 16:28] VITALS: BP 98/61
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
[2020-01-12 17:00] VITALS: BP 93/52
--- NOTE | 2020-01-13 04:07 | NUR ---
PT TRANSFERRED FROM ROOM 201 EARLIER IN THE SHIFT. SHE CAME WITH FOOD TRAY, SHE SAT IN CHAIR AND ATE WELL-GOOD APPETITE NOTED. PT REQUIRES SBA TO THE BSC. C/O PAIN TO R SIDE OF STOMACH. 3+ EDEMA TO BLE, ELEVATED ON PILLOWS AND SCDS IN PLACE.BREATHING OKAY ON ROOM AIR, NO COUGH NOTED. ONE TIME EXTRA DOSE OF LASIX, K-PHOS, ALBUMIN GIVEN UPON COMING TO THE UNIT. MORPHINE GIVEN FOR PAIN, WITH RELIEF. PT HAD SOME SAD MOMENT, TALKING ABOUT HER LIFE AND HOW ANXIOUS SHE GETS. THERAPEUTIC COMMUNICATION PROVIDED.OBSERVED SLEEPING AT THIS TIME.
[2020-01-13 06:48] LABS: CALCIUM 6.8 mg/dL (8.5-10.1); CREATININE 1.4 mg/dL (0.6-1.0); MAGNESIUM 1.7 mg/dL (1.8-2.4); PHOSPHORUS 1.9 mg/dL (2.5-4.9)
[2020-01-13 06:50] LABS: POTASSIUM 2.8 mmol/L (3.5-5.1)
[2020-01-13 08:12] LABS: HAV IgM AB (ANTI-HAV IgM) Negative (Negative); HEPATITIS B SURFACE AG Negative (Negative); HEPATITIS C VIRUS AB <0.1 (0.0-0.9)
[2020-01-13 08:37] LABS: ALBUMIN 1.9 g/dL (3.4-5.0); DIRECT BILIRUBIN 17.3 mg/dL (<0.1-0.2); TOTAL BILIRUBIN 21.8 mg/dL (<0.1-1.0); TOTAL PROTEIN 5.4 g/dL (6.4-8.2)
[2020-01-13 09:29] VITALS: BP 102/58
--- NOTE | 2020-01-13 13:01 | NUR ---
Assumed pt care at 7am.Pt in and out of bed with stand by assist x1. Assessment completed.vss.Pt c/o lip bleeding and pressure applied with 4x4 gauze,Dr Whitehead notified when bleeding didn't stopped.He rounded on pt .No order noted.Lip moisturizing applied.Pain med given for back pain with relief. Dr Smalls here,order noted.Pt called family on phone.Will contine to monitor.
--- NOTE | 2020-01-13 15:44 | NUR ---
CARE TEAM INDICATED THAT PT IS PROGRESSING SLOWLY TOWARD GOAL OF DISCHARGE. CARE ARE TEAM INDICATED THAT PT WILL LIKELLY BE MEDICALLY STABLE TO DC HOME IN THE NEXT COUPLE OF DAYS. INFO FOR SUBSTANCE ABUSE PROGRAMING HAS BEEN PUT IN PT'S DISCHARGE INSTRUCTIONS. IT'S ANTICPATED THAT PT WON'T HAVE ANY OTHER NEEDS UPON DC. CM TO FOLLOW INDICATED WITH DC PLANNING.
[2020-01-13 16:07] LABS: ANTI-EBNA 57.8 U/mL (0.0-17.9); ANTI-VCA/IgM <36.0 U/mL (0.0-35.9)
[2020-01-13 16:55] VITALS: BP 97/59
[2020-01-13 18:59] VITALS: BP 89/58
[2020-01-14 03:21] VITALS: BP 105/61
--- NOTE | 2020-01-14 03:32 | NUR ---
PT CARE ASSUMED AT 1900 WITH PT IN CHAIR EATING.PT IS A/O X4.PT IS UP WITH SBA .PT IS ON 1200ML FRUID RESTRICTION.PT C/O OF APIN AND PAIN MANAGED WITH OXYCODONE AND MORPHINE WITH PARTIAL RELIEF.PT IS ACCUCHECK ACHS WITH LOW SSI.PT HAS A DOUBLE LUMEN PICC ON CARON.PT HAS BLE EDEMA.WILL CONTINUE TO MONITOR PER POC
[2020-01-14 06:01] LABS: CALCIUM 6.7 mg/dL (8.5-10.1); CREATININE 1.5 mg/dL (0.6-1.0); TOTAL BILIRUBIN 24.5 mg/dL (<0.1-1.0)
[2020-01-14 06:23] LABS: POTASSIUM 2.9 mmol/L (3.5-5.1)
[2020-01-14 06:24] LABS: INR 3.8; PROTIME 39.2 Seconds (9.3-11.4)
[2020-01-14 08:00] VITALS: BP 102/61
--- NOTE | 2020-01-14 09:13 | NUR ---
DR CHRISTIE HERE TO SEE PATIENT. ORDER TO GIVE 40 MEQ PO KCL ANOTHER 40 MEQ PO AT 11:00 AND RECHECK KCL AT 15:OO. PT HAD FORMED STOOL AND STATES NO LOOSE STOOLS, DR CHRISTIE ORDERS TO DC ISOLATION AND C- DIFF TEST. PT GIVEN PRN PO PAIN MED. PT PLEASANT AND COOPERATIVE WITH CARE.
--- NOTE | 2020-01-14 13:52 | NUR ---
PT IN ROOM IS DOING VIDEO CONFERENCING. 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
[2020-01-14 16:00] VITALS: BP 104/62
--- NOTE | 2020-01-14 16:02 | NUR ---
THERAPY WAS ORDERED AND [facility] CONSULTED. [facility] INDICATED THAT THEY CAN ACCEPT PT MEDICALLY AND WOULD SUBMIT FOR INSURANCE AUTH. CM TO FOLLOW INDICATED WITH DC PLANNING.
--- NOTE | 2020-01-14 16:18 | NUR ---
PT RESTING IN BED THIS NURSE PULLED FROM HER PICC LINE BLOOD TO CHECK KCL THIS NURSE TOOK SPECIMEN TO LAB.
[2020-01-14 19:05] VITALS: BP 112/74
--- NOTE | 2020-01-15 02:53 | NUR ---
pt care assumed with pt in bed.pt is up with x1 assist to the bedside commode.pt is a/o x4.pt c/o pain and on oxycodone for pain management.pt is accucheck achs with low dose ssi.pt has a double lumen PICC line on the CARON.pt has ble edma +3 and needs to be elevated.will continue to monitor per poc
[2020-01-15 06:16] LABS: ALBUMIN 2.7 g/dL (3.4-5.0); CALCIUM 6.9 mg/dL (8.5-10.1); CREATININE 2.2 mg/dL (0.6-1.0); POTASSIUM 3.7 mmol/L (3.5-5.1); TOTAL BILIRUBIN 29.9 mg/dL (<0.1-1.0); TOTAL PROTEIN 5.3 g/dL (6.4-8.2)
[2020-01-15 07:38] VITALS: BP 107/68
--- NOTE | 2020-01-15 11:10 | NUR ---
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 PT IS CONT OF B&B. HAS SAMINA LE EDEMA. 3-4 PLUS. FEET ELEVATED WHILE IN BED. CONT ON IV MEDS. PT TO DC TO [facility] TODAY.
[2020-01-15 12:58] LABS: PROTIME 48.9 Seconds (9.3-11.4)
[2020-01-15 13:03] LABS: INR 4.8
--- NOTE | 2020-01-15 14:19 | NUR ---
CARE TEAM INDICATED THAT PT IS PROGRESSING SLOWLEY TOWARD GOAL OF DC. IT IS ANTICPATED THAT PT WILL BE HERE OVER THE WEEKEND. [facility] HAD ASSESSED AND INDICATED THAT THEY ARE ABLE TO ACCEPT PT ONCE MEDICALLY STABLE. CM TO FOLLOW INDICATED WITH DC PLANNING.
--- NOTE | 2020-01-15 15:03 | NUR ---
PATIENT SEEN BY ROBYN DIAZ NP WITH DR. ARMIJO, ON 01/14/20. PATIENT IS A CANDIDATE FOR ACUTE REHAB STAY. PATIENT NOT MEDICALLY READY FOR ACUTE HOSPITAL DISCHARGE. ANTICIPATE ADMISSION TO REHAB EARLY NEXT WEEK. WILL CONTINUE TO FOLLOW. THANK YOU FOR THIS REFERRAL.
[2020-01-15 15:28] VITALS: BP 95/60
[2020-01-15 19:35] VITALS: BP 101/66
--- NOTE | 2020-01-15 19:44 | NUR ---
CALLED DR CHRISTIE TO LET HIM KNOW ABOUT CRITICAL INR FROM 13:[address]RISTIE STATED TO JUST. HE DID ASK THIS NURSE TO CALL ZAC MIGUEL. THIS NURSE DID ASKED
--- NOTE | 2020-01-16 01:08 | NUR ---
ASSUMED PT CARE AT 1900. PT CAN HARDLY STAY AWAKE WHILE THIS NURSE WAS TALKING TO HER. WHEN AROUSED, PT IS CONFUSED ABOUT TIME OF DAY/DAY OF THE WEEK. PT SAYS SHE FEELS FINE, IS JUST TIRED. 3+ PITTING EDEMA BLE. USES WALKER W/ ASSIST TO BEDSIDE COMMODE. URINE IS TEA COLORED - SAMPLE SENT TO LAB. BLOOD SUGAR WNL. PAIN MANAGED WITH PO MEDS. PT MISSED DINNER, ASKED FOR BOX LUNCH BUT FELL ASLEEP WHILE EATING IT. VSS. WILL CONTINUE TO MONITOR OVERNIGHT FOR ANY CHANGES.
[2020-01-16 04:00] VITALS: BP 103/60
[2020-01-16 05:57] LABS: URINE CREATININE-RANDOM* 302.1 mg/dL; URINE SODIUM-RANDOM* <5 mmol/L
[2020-01-16 07:05] LABS: INR 4.5
[2020-01-16 07:07] LABS: ALBUMIN 2.6 g/dL (3.4-5.0); PHOSPHORUS 1.7 mg/dL (2.5-4.9); POTASSIUM 3.6 mmol/L (3.5-5.1)
[2020-01-16 07:10] LABS: CREATININE 3.4 mg/dL (0.6-1.0)
[2020-01-16 07:26] LABS: ALBUMIN 2.6 g/dL (3.4-5.0); DIRECT BILIRUBIN 23.9 mg/dL (<0.1-0.2); TOTAL BILIRUBIN 31.3 mg/dL (<0.1-1.0); TOTAL PROTEIN 4.7 g/dL (6.4-8.2)
[2020-01-16 08:25] VITALS: BP 95/54
[2020-01-16 13:56] VITALS: BP 98/61
--- NOTE | 2020-01-16 14:30 | NUR ---
PT ASSESSED AT START OF SHIFT. LOW SODIUM CALLED TO DR. MIXON AFTER LAB CALLED RESULT. DR. CHRISTIE HERE TO SEE PT EARLY. PT VERY CONFUSED, UNABLE TO FOCUS. REPEATING SAME WORDS. LARGE AMOUNT OF ANASARCA-NO WEEPING AT THIS TIME. PT NOT ABLE TO VOID THIS SHIFT. NO BM. DRIFTS OFF TO SLEEP FREQUENTLY. NOT ABLE TO FEED SELF OR CHEW FOOD FOR WEAKNESS. GIVEN BITE OF APPLESAUCE/FULL LIQUIDS ONLY TO PREVENT ASPIRATION. TRANSFER ORDER FOR [facility] AND PT NOT ACCEPTED PER DR. CHRISTIE AFTER TALKING TO [facility]. PARENTS WANTED TO TAKE DAUGHTER OUT OF [facility] AND TRY TAKING PT TO [facility] FOR POSSIBLE ADMITTANCE. PT DISCHARED W/ ALL BELONGINGS TO CARE OF PARENTS. ASSISTED FROM THE W/C INTO VEHICLE.
== END 2020-01-16 14:28 | disposition home or self-care (01) | DRG 441 ==
LOC: ER 19:01 → 3W 22:13 → EROBS 22:13 → 2N 22:13 → 3W 22:45 → 2N 01-11 17:20 → 4S 01-12 20:57
PROVIDERS: Emergency Medicine; Hospitalist; Internal Medicine Gastroenterology; Nurse Practitioner; Nurse Practitioner Family; ADMIT Internal Medicine
PROC: 30233M1 Transfusion of Nonautologous Plasma Cryoprecipitate into Peripheral Vein, Percutaneous Approach (ICD-10-PCS; principal; 2020-01-11)
PROC: 02H633Z Insertion of Infusion Device into Right Atrium, Percutaneous Approach (ICD-10-PCS; principal; 2020-01-11)
DX: K72.00 Acute and subacute hepatic failure without coma (principal); K76.7 Hepatorenal syndrome; R65.11 Systemic inflammatory response syndrome (SIRS) of non-infectious origin with acute organ dysfunction; E43 Unspecified severe protein-calorie malnutrition; D68.9 Coagulation defect, unspecified; E87.1 Hypo-osmolality and hyponatremia; N17.9 Acute kidney failure, unspecified; G93.40 Encephalopathy, unspecified; K70.10 Alcoholic hepatitis without ascites; Y90.6 Blood alcohol level of 120-199 mg/100 ml; K52.9 Noninfective gastroenteritis and colitis, unspecified; I10 Essential (primary) hypertension; K21.9 Gastro-esophageal reflux disease without esophagitis; F41.9 Anxiety disorder, unspecified; K70.0 Alcoholic fatty liver; E83.42 Hypomagnesemia; E83.39 Other disorders of phosphorus metabolism; E87.6 Hypokalemia; F32.9 Major depressive disorder, single episode, unspecified; M54.16 Radiculopathy, lumbar region; M54.9 Dorsalgia, unspecified; F12.90 Cannabis use, unspecified, uncomplicated; F10.10 Alcohol abuse, uncomplicated; R60.1 Generalized edema; Z20.828 Contact with and (suspected) exposure to other viral communicable diseases; Z98.891 History of uterine scar from previous surgery; Z90.49 Acquired absence of other specified parts of digestive tract; Z79.82 Long term (current) use of aspirin; Z79.899 Other long term (current) drug therapy
CPT/HCPCS: 10081; 10102; 10879; 27000